=== PATIENT | female | born 1965 | race Caucasian/White ===

== ENCOUNTER 2016-12-20 09:59 | Emergency (ER) | payer BC ==
[2016-12-20 10:21] VITALS: BP 162/90
--- NOTE | 2016-12-20 10:50 | EDM.PDOC ---
ED HPI Trauma - General Chief Complaint: Upper Extremity Injury/Pain Stated Complaint: RT ARM PAIN Time Seen by Provider: 12/20/16 10:25 Source: Reports: Patient, RN notes reviewed - History of Present Illness INITIAL COMMENTS - FREE TEXT/NARRATIVE: 51-year-old female comes in with right upper arm and right shoulder pain. This started about 5 days ago and now getting much worse over the past 24-48 hours. She does not recall any fall or injury. She was seen at [facility] yesterday , had x-rays which did show a calcification off of the proximal humerus compatible with possible old injury. She was told to take ibuprofen, followup with a provider and get an MRI. However arrangements for MRI were not obtained. The pain has worsened through the night. She states she was not able to get dressed this morning without assistance. She did take 800 mg ibuprofen a few hours ago and now the pain is less severe but still very uncomfortable with any type of attempted motion. The pain does not radiate. No upper neck or back discomfort. No peripheral paresthesias. Allergies/ADRs: Allergies Sulfa (Sulfonamide Antibiotics) Allergy (Verified 12/20/16 10:12) Vomiting Home Medications: Ambulatory Orders Hydroclorathiazide 12.5 mg PO DAILY 12/20/16 [Confirmed 12/20/16] Levothyroxine Sodium [Synthroid] 112 mcg PO DAILY 12/20/16 [Confirmed 12/20/16] Metoprolol Tartrate 75 mg PO BID 12/20/16 [Confirmed 12/20/16] Past Medical History Cardiovascular History: Reports: Hypertension Respiratory History: Reports: Bronchitis, recurrent Endocrine/Metabolic History: Reports: Hypothyroidism Social & Family History - Tobacco Use Smoking Status *Q: Former Smoker Used Tobacco, but Quit: Yes Month Tobacco Last Used: 1 yr - Caffeine Use Caffeine Use: Reports: Coffee - Recreational Drug Use Recreational Drug Use: No Review of Systems - Review of Systems Review Of Systems: See Below Constitutional: Denies: chills, fever Mouth/Throat: Reports: no symptoms Respiratory: Denies: Shortness of Breath Cardiovascular: Denies: chest pain GI/Abdominal: Denies: Abdominal pain, Nausea, Vomiting Musculoskeletal: Reports: shoulder pain (Right shoulder). Denies: neck pain, back pain Skin: Reports: no symptoms Neurological: Denies: Numbness, Tingling Trauma Exam - Physical Exam Exam: See Below General Appearance: Reports: alert, moderate distress Head: Reports: atraumatic Eyes: bilateral eye: PERRL Neck: Reports: non-tender, full range of motion Respiratory Exam: Reports: no respiratory distress, lungs clear Cardiovascular: Reports: regular rate, rhythm Extremities: Reports: pain with movement, tenderness (There is soft tissue tenderness of the lateral aspect of the right shoulder and upper warm, no visible swelling, no visible deformity, no warmth or erythema), other (Elbow forearm are nontender and without swelling) Neurologic: Reports: no motor/sensory deficits Skin: Reports: Normal color, Warm/dry Course - Vital Signs Last Recorded V/S: Last Vital Signs Temp 98.6 F 12/20/16 10:19 Pulse 72 12/20/16 10:19 Resp 20 12/20/16 10:19 BP 162/90 H 12/20/16 10:19 Pulse Ox 97 12/20/16 10:19 - Orders/Labs/Meds Orders: Active Orders 24 hr Category Date Time Status Durable Medical Equipment for Discharge [DME for Oth 12/20/16 10:44 Ordered Discharge] [COMM] Stat - Re-Assessments/Exams Free Text/Narrative Re-Assessment/Exam: 12/20/16 11:08 A family member shows me a photo of her shoulder x-ray from yesterday. There is a fairly large calcification density off of the proximal humerus compatible with prior avulsion injury. This does not look like something acute. Shoulder joint and upper arm otherwise looks radiographically normal. I wouldn't treat her with an arm sling, have her continue Advil or ibuprofen 3 times daily, alternate ice and heat as needed, Tylenol or hydrocodone in addition to the ibuprofen as needed for severe pain. I have ordered an MRI. Radiology will contact her Thursday morning to get that scheduled. I've advised to followup with Dr. Edwards Orthopedist [facility] once the MRI has been done. Departure - Departure Time of Disposition: 10:48 Disposition: Home, Self-Care 01 Condition: fair Clinical Impression: Shoulder pain, acute Qualifiers: Laterality: right Qualified Code(s): M25.511 - Pain in right shoulder Instructions: Shoulder Pain Referrals: Puja Novak NP [Primary Care Provider] - Forms: ED Department Discharge Additional Instructions: Arm sling for the next few days, after 2 days start working with some range of motion exercises as previously demonstrated at the clinic at least 3 times daily so you do not get a stiff frozen shoulder. An order for MRI of the shoulder has been provided, radiology will call you Thursday morning to set you up with a time. Followup with Dr. Edwards, Orthopedist at [facility] after you have had your MRI for results, further treatment as needed. In the meantime continue Advil or ibuprofen. I recommend taking 600 mg 3 times daily with food. You may take Tylenol in between doses for extra pain relief or hydrocodone if needed for severe pain. Do not take Tylenol and hydrocodone at the same time. Do not drive or work when taking hydrocodone. - My Orders Last 24 Hours: My Active Orders 12/20/16 10:44 Durable Medical Equipment for Discharge [DME for Discharge] [COMM] Stat - Assessment/Plan Last 24 Hours: My Active Orders 12/20/16 10:44 Durable Medical Equipment for Discharge [DME for Discharge] [COMM] Stat
== END 2016-12-20 11:04 | disposition home or self-care (01) ==
LOC: JD.ED 09:59
DX: M25.511 Pain in right shoulder (principal); I10 Essential (primary) hypertension; E03.9 Hypothyroidism, unspecified; Z88.2 Allergy status to sulfonamides; Z79.899 Other long term (current) drug therapy; Z87.891 Personal history of nicotine dependence
CPT/HCPCS: 99283

== ENCOUNTER 2017-12-13 11:53 | Emergency (ER) | payer BC, OTHER ==
--- NOTE | 2017-12-13 12:30 | EDM.PDOC ---
ED HPI GENERAL MEDICAL PROBLEM - General Chief Complaint: Genitourinary Problem Stated Complaint: POSS. UTI Time Seen by Provider: 12/13/17 12:20 Source of Information: Reports: Patient History Limitations: Reports: No Limitations - History of Present Illness INITIAL COMMENTS - FREE TEXT/NARRATIVE: 52-year-old female presents for evaluation and treatment of hematuria. Patient reports that her symptoms started suddenly about 2 hours ago. Current symptoms include dysuria, hematuria, urinary frequency and urinary urgency. She reports that she is having some low back pain. She also reports nausea. No fevers, chills or vomiting. She is also complaining of some suprapubic pelvic pain. Patient reports she's had a 2 urinary tract infections in the past. She also has had kidney stones in the past. Onset: Today, Sudden Location: Reports: Abdomen (suprapubic) Treatments HEAD OF HUMAN RESOURCES: Reports: Other (see below) Other Treatments HEAD OF HUMAN RESOURCES: none Pelvic Pain Score (Numeric/FACES): 4 - Related Data Allergies Allergy/AdvReac Type Severity Reaction Status Date / Time Sulfa (Sulfonamide Allergy Vomiting Verified 12/20/16 10:12 Antibiotics) Home Meds: Home Meds Hydroclorathiazide 12.5 mg PO DAILY 12/20/16 [History] Levothyroxine Sodium [Synthroid] 112 mcg PO DAILY 12/20/16 [History] Metoprolol Tartrate 75 mg PO BID 12/20/16 [History] Fluconazole [Diflucan] 150 mg PO ASDIRECTED #2 tablet 12/13/17 [Rx] Nitrofurantoin Monohyd/M-Cryst [Macrobid 100 mg Capsule] 100 mg PO BID #20 capsule 12/13/17 [Rx] Past Medical History Cardiovascular History: Reports: Hypertension Respiratory History: Reports: Bronchitis, Recurrent Genitourinary History: Reports: Renal Calculus, UTI, Recurrent Endocrine/Metabolic History: Reports: Hypothyroidism Social & Family History - Tobacco Use Smoking Status *Q: Current Every Day Smoker Years of Tobacco use: 30 Packs/Tins Daily: 0.7 Used Tobacco, but Quit: Yes Month/Year Tobacco Last Used: 1 yr - Caffeine Use Caffeine Use: Reports: Coffee, Soda - Recreational Drug Use Recreational Drug Use: No ED ROS GENERAL - Review of Systems Review Of Systems: See Below Constitutional: Denies: Fever, Chills GI/Abdominal: Reports: Abdominal Pain (lower abdomen/suprapubic), Nausea. Denies: Vomiting : Reports: Dysuria, Frequency, Hematuria, Pain. Denies: Flank Pain Musculoskeletal: Reports: Back Pain (lower back) ED EXAM, RENAL/ - Physical Exam Exam: See Below Exam Limited By: No Limitations General Appearance: Alert, WD/WN, No Apparent Distress, Anxious, Obese Ears: Normal External Exam Nose: Normal Inspection Throat/Mouth: Normal Inspection, Normal Voice, No Airway Compromise Respiratory/Chest: No Respiratory Distress, Lungs Clear, Normal Breath Sounds Cardiovascular: Normal Peripheral Pulses, Regular Rate, Rhythm, No Murmur Back Exam: Normal Inspection. No: CVA Tenderness (L), CVA Tenderness (R) Neurological: Alert, Oriented, Normal Cognition Psychiatric: Normal Affect, Normal Mood Skin Exam: Warm, Dry, Normal Color Course - Vital Signs Last Recorded V/S: Last Vital Signs Temp 36.8 C 12/13/17 12:08 Pulse 104 H 12/13/17 12:08 Resp 18 12/13/17 13:46 BP 135/71 12/13/17 13:46 Pulse Ox 96 12/13/17 13:46 - Orders/Labs/Meds Orders: Active Orders 24 hr Category Date Time Status CULTURE URINE [RM] Stat Lab 12/13/17 11:59 Ordered Labs: Laboratory Tests 12/13/17 Range/Units 11:59 Urine Color Natalia H (Yellow) Urine Appearance Slt cloudy H (Clear) Urine pH 5.5 (5.0-8.0) Ur Specific Mccarr > or = 1.030 (1.005-1.030) Urine Protein 3+ H (Negative) Urine Glucose (UA) Negative (Negative) Urine Ketones Trace H (Negative) Urine Occult Blood 3+ H (Negative) Urine Nitrite Negative (Negative) Urine Bilirubin 1+ H (Negative) Urine Urobilinogen 0.2 (0.2-1.0) Ur Leukocyte Esterase 3+ H (Negative) Urine RBC Too numerous to cnt H (0-5) /hpf Urine WBC Too numerous to cnt H (0-5) /hpf Ur Epithelial Cells 0-5 (0-5) /hpf Urine Bacteria Few (FEW) /hpf Urine Mucus Not seen (FEW) /hpf - Re-Assessments/Exams Free Text/Narrative Re-Assessment/Exam: 04/29/18 13:31 Reviewed UA with the patient. Urine sent for culture. Symptoms and UA consistent with UTI. Will treat with antibiotics. Follow- up if not better. diflucan written for frequent yeast infections with antibiotics. Discharge instructions as documented. Departure - Departure Time of Disposition: 13:37 Disposition: Home, Self-Care 01 Condition: Good Clinical Impression: UTI, Urinary tract infectious disease - Discharge Information Prescriptions: Fluconazole [Diflucan] 150 mg PO ASDIRECTED #2 tablet Nitrofurantoin Monohyd/M-Cryst [Macrobid 100 mg Capsule] 100 mg PO BID #20 capsule Instructions: Urinary Tract Infection, Adult, [id number] Referrals: Puja Novak NP [Primary Care Provider] - Forms: ED Department Discharge Additional Instructions: make Sure you are drinking plenty of fluids. Recommend [id number] Pyridium or Azo. May take this 3 times a day for 3 days while the antibiotics kick in. This will help with the dysuria. [id number] Tylenol or Motrin seen for additional pain relief. Macrobid 1 Twice a day for 10 days. Follow up with your primary care provider for symptoms do not improve within 10 days. You may take the Diflucan if you develop yeast infection. Take 1 pill at the onset of symptoms and take a second pill 72 hours later. Please return to the ER if your symptoms change or worsen. - My Orders Last 24 Hours: My Active Orders 12/13/17 11:59 CULTURE URINE [RM] Stat - Assessment/Plan Last 24 Hours: My Active Orders 12/13/17 11:59 CULTURE URINE [RM] Stat
[2017-12-13 13:52] VITALS: BP 135/71
== END 2017-12-13 13:50 | disposition home or self-care (01) ==
LOC: JD.ED 11:53
DX: N39.0 Urinary tract infection, site not specified (principal); I10 Essential (primary) hypertension; E03.9 Hypothyroidism, unspecified; F17.210 Nicotine dependence, cigarettes, uncomplicated; Z87.440 Personal history of urinary (tract) infections; Z87.442 Personal history of urinary calculi; Z88.2 Allergy status to sulfonamides; Z79.899 Other long term (current) drug therapy
CPT/HCPCS: 81001; 87086; 99283

== ENCOUNTER 2019-05-02 03:19 | Inpatient (IN) | payer OTHER ==
[2019-05-02] MEDS ORDERED: Albuterol/Ipratropium 3.0-0.5 MG/3 ML Neb Soln NEB ONE ×3 (03:38→06:12)
--- NOTE | 2019-05-02 03:40 | EDM.PDOC ---
ED HPI GENERAL MEDICAL PROBLEM - General Chief Complaint: Cardiovascular Problem Stated Complaint: CHEST PAIN SHORT OF BREATH Time Seen by Provider: 05/02/19 03:32 - History of Present Illness INITIAL COMMENTS - FREE TEXT/NARRATIVE: 53-year-old female presents emergency room with shortness of breath. She has some chest discomfort and sharp pain with deep breathing. And with coughing. She is coughing up some off-colored thick sputum. And it takes some effort to get this to come up. Patient has a history of childhood asthma nothing as an adult. The patient is a smoker she's quit several times in the past but manages to recent dark. She has no history of coronary artery disease. This last week the patient had some fevers in the 101 range she was seen in the clinic twice because she had some bladder fullness urinalysis were unrevealing they did some cultures never grew out anything. Chest Pain Score (Numeric/FACES): 3 - Related Data Allergies Allergy/AdvReac Type Severity Reaction Status Date / Time Sulfa (Sulfonamide Allergy Vomiting Verified 05/02/19 04:19 Antibiotics) Home Meds: Home Meds Hydroclorathiazide 6.25 mg PO DAILY 12/20/16 [History] Levothyroxine Sodium [Synthroid] 112 mcg PO DAILY 12/20/16 [History] Metoprolol Tartrate 75 mg PO BID 12/20/16 [History] Multivitamin [Multi-Day Vitamins] 1 each PO DAILY 06/07/18 [History] Past Medical History Cardiovascular History: Reports: Hypertension Respiratory History: Reports: Bronchitis, Recurrent Genitourinary History: Reports: Renal Calculus Psychiatric History: Reports: Panic Attack (x 1) Endocrine/Metabolic History: Reports: Hypothyroidism, Obesity/BMI 30+ - Past Surgical History Endocrine Surgical History: Reports: Thyroidectomy Social & Family History - Family History Family Medical History: Noncontributory - Caffeine Use Caffeine Use: Reports: Coffee - Living Situation & Occupation Living situation: Reports: , with Spouse 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 Denies: Chills HEENT: Reports: No Symptoms Respiratory: Reports: Shortness of Breath, Pleuritic Chest Pain, Cough, Sputum Cardiovascular: Reports: Chest Pain (Sharp pleuritic-type chest pain). Denies: Palpitations Endocrine: Reports: No Symptoms GI/Abdominal: Reports: No Symptoms : Reports: No Symptoms Neurological: Reports: No Symptoms ED EXAM, GENERAL - Physical Exam Exam: See Below Exam Limited By: No Limitations General Appearance: Alert, Moderate Distress (Shortness of breath). No: Anxious Ears: Normal External Exam, Normal Canal, Hearing Grossly Normal, Normal TMs Nose: Normal Inspection, Normal Mucosa, No Blood Throat/Mouth: Normal Inspection, Normal Lips, Normal Teeth, Normal Gums, Normal Oropharynx, Normal Voice, No Airway Compromise Head: Atraumatic, Normocephalic Neck: Normal Inspection, Supple, Non-Tender, Full Range of Motion, Lymphadenopathy (L), Lymphadenopathy (R) Respiratory/Chest: No Respiratory Distress, Lungs Clear, Normal Breath Sounds Cardiovascular: Regular Rate, Rhythm, No Edema, No Murmur GI/Abdominal: Normal Bowel Sounds, Soft, Non-Tender Extremities: Normal Inspection, Non-Tender, No Pedal Edema. No: Pedal Edema Neurological: Alert, Oriented, Normal Cognition Course - Vital Signs Last Recorded V/S: Last Vital Signs Temp 37.4 C 05/02/19 03:31 Pulse 120 H 05/02/19 03:31 Resp 27 H 05/02/19 03:31 BP 167/79 H 05/02/19 03:31 Pulse Ox 95 05/02/19 06:19 - Orders/Labs/Meds Orders: Active Orders 24 hr Category Date Time Status EKG Documentation Completion [RC] URGENT Care 05/02/19 03:40 Active Oxygen Therapy, ED [RC] ASDIRECTED Care 05/02/19 04:25 Active RT Aerosol Therapy [RC] ASDIRECTED Care 05/02/19 03:38 Active RT Aerosol Therapy [RC] ASDIRECTED Care 05/02/19 04:59 Active RT Aerosol Therapy [RC] ASDIRECTED Care 05/02/19 06:13 Active Ang Chest [CT] Stat Exams 05/02/19 04:24 Taken Chest 1V Frontal [CR] Stat Exams 05/02/19 03:39 Taken CULTURE BLOOD [BC] Stat Lab 05/02/19 03:55 Received CULTURE BLOOD [BC] Stat Lab 05/02/19 04:05 Received Levofloxacin/Dextrose 5%-Water [Levaquin in D5W 750 MG/ Med 05/02/19 07:04 Ordered 150 ML] 750 mg Premix Bag 1 bag IV ONETIME Sodium Chloride 0.9% [Normal Saline] 1,000 ml Med 05/02/19 03:45 Active IV ASDIRECTED Sodium Chloride 0.9% [Normal Saline] 100 ml Med 05/02/19 04:45 Active IV ASDIRECTED Blood Culture x2 Reflex Set [OM.PC] Stat Oth 05/02/19 03:40 Ordered Medication Orders Sodium Chloride (Normal Saline) 1,000 mls @ 125 mls/hr IV ASDIRECTED KARMEN Last Admin: 05/02/19 04:09 Dose: 125 mls/hr Sodium Chloride (Normal Saline) 100 mls @ 5 mls/sec IV ASDIRECTED KARMEN Last Admin: 05/02/19 04:43 Dose: 5 mls/sec Levofloxacin/Dextrose 750 mg/ (Premix) 150 mls @ 100 mls/hr IV ONETIME ONE Stop: 05/02/19 08:33 Labs: Laboratory Tests 05/02/19 05/02/19 05/02/19 Range/Units 03:35 03:35 03:35 WBC 11.50 H (3.98-10.04) K/mm3 RBC 5.58 H (3.98-5.22) M/mm3 Hgb 15.7 (11.2-15.7) gm/L Hct 47.2 H (34.1-44.9) % MCV 84.6 (79.4-94.8) fl MCH 28.1 (25.6-32.2) pg MCHC 33.3 (32.2-35.5) g/dl RDW Std Deviation 43.2 (36.4-46.3) fL Plt Count 170 L (182-369) K/mm3 MPV 12.0 (9.4-12.3) fl Neutrophils % (Manual) 63 H (40-60) % Band Neutrophils % 14 H (0-10) % Lymphocytes % (Manual) 14 L (20-40) % Atypical Lymphs % 0 % Monocytes % (Manual) 5 (2-10) % Eosinophils % (Manual) 4 (0.7-5.8) % Basophils % (Manual) 0 L (0.1-1.2) Toxic Granulation 2+ moderate Platelet Estimate Decreased Plt Morphology Comment Normal RBC Morph Comment Normal PT 10.5 (9.7-12.0) SECONDS INR 0.96 APTT 29 (22-31) SECONDS Sodium 139 (136-145) mEq/L Potassium 3.7 (3.5-5.1) mEq/L Chloride 104 (98-107) mEq/L Carbon Dioxide 24 (21-32) mEq/L Anion Gap 14.7 (5-15) BUN 19 H (7-18) mg/dL Creatinine 0.9 (0.55-1.02) mg/dL Est Cr Clr Drug Dosing 102.34 mL/min Estimated GFR (MDRD) > 60 (>60) mL/min BUN/Creatinine Ratio 21.1 H (14-18) Glucose 145 H (74-106) mg/dL Calcium 9.4 (8.5-10.1) mg/dL Magnesium 2.0 (1.8-2.4) mg/dl Total Bilirubin 0.9 (0.2-1.0) mg/dL AST 14 L (15-37) U/L ALT 44 (14-59) U/L Alkaline Phosphatase 139 H (46-116) U/L Troponin I < 0.017 (0.00-0.056) ng/mL Total Protein 8.1 (6.4-8.2) g/dl Albumin 3.9 (3.4-5.0) g/dl Globulin 4.2 gm/dL Albumin/Globulin Ratio 0.9 L (1-2) Mycoplasma pneumon IgM Negative (NEGATIVE) Meds: Medications Generic Name Dose Route Start Last Admin Trade Name Freq PRN Reason Stop Dose Admin Sodium Chloride 1,000 mls @ 125 mls/hr 05/02/19 03:45 05/02/19 04:09 Normal Saline IV 125 mls/hr ASDIRECTED KARMEN Administration Sodium Chloride 100 mls @ 5 mls/sec 05/02/19 04:45 05/02/19 04:43 Normal Saline IV 5 mls/sec ASDIRECTED KARMEN Administration Levofloxacin/Dextrose 750 mg/ 150 mls @ 100 mls/hr 05/02/19 07:04 Premix IV 05/02/19 08:33 ONETIME ONE Discontinued Medications Generic Name Dose Route Start Last Admin Trade Name Freq PRN Reason Stop Dose Admin Acetaminophen 650 mg 05/02/19 05:23 05/02/19 05:27 Tylenol PO 05/02/19 05:24 650 mg NOW ONE Administration Albuterol/Ipratropium 3 ml 05/02/19 03:38 05/02/19 03:44 Duoneb 3.0-0.5 Mg/3 Ml NEB 05/02/19 03:39 3 ml ONETIME ONE Administration Albuterol/Ipratropium 3 ml 05/02/19 04:59 05/02/19 05:07 Duoneb 3.0-0.5 Mg/3 Ml NEB 05/02/19 05:00 3 ml ONETIME ONE Administration Albuterol/Ipratropium 3 ml 05/02/19 06:12 05/02/19 06:18 Duoneb 3.0-0.5 Mg/3 Ml NEB 05/02/19 06:13 3 ml ONETIME ONE Administration Iopamidol 100 ml 05/02/19 04:42 05/02/19 04:43 Isovue-370 (76%) IVPUSH 05/02/19 04:43 100 ml ONETIME ONE Administration Methylprednisolone Sodium Succinate 125 mg 05/02/19 04:25 05/02/19 04:47 Solu-Medrol IVPUSH 05/02/19 04:26 125 mg ONETIME ONE Administration - Re-Assessments/Exams Free Text/Narrative Re-Assessment/Exam: 05/02/19 07:31 A she presented to the emergency room with significant shortness of breath and labored respirations. She was moving very little air. She's got no significant history of asthma except as a child. Patient has been running some fevers recently and has been coughing up thick off-color sputum. She was given her initial breathing treatment and 125 mg of IV Solu-Medrol and felt much better after the deep breathing treatment however her O2 saturations were still a little on the low side 88-89%. She was continued on supplemental oxygen. She had several more breathing treatments each one did continue to help after her third breathing treatment she was moving air better to the point he can hear inspiratory crackles and a few expiratory wheezes. She had a plate chest x-ray that really was nonrevealing because of her continued tachycardia I did get a CTA which showed no central pulmonary embolism did show some possible mild pulmonary edema it incidentally showed some cholelithiasis with a possibly mildly distended gallbladder. She had 4 for it to 7 mm pulmonary nodules. Had a long talk with patient about the importance of quitting smoking. Lungs showed some bilateral groundglass opacities with some associated interstitial thickening but no obvious infiltrate. The patient was started on Levaquin 750 mg. Case was discussed with Dr. Parkinson, our hospitalist who will assume care Departure - Departure Time of Disposition: 07:21 Disposition: Refer to Observation Clinical Impression: COPD exacerbation Referrals: Puja Novak, [employer] [Primary Care Provider] - Forms: ED Department Discharge - My Orders Last 24 Hours: My Active Orders 05/02/19 03:38 RT Aerosol Therapy [RC] ASDIRECTED 05/02/19 03:39 Chest 1V Frontal [CR] Stat 05/02/19 03:40 EKG Documentation Completion [RC] URGENT Blood Culture x2 Reflex Set [OM.PC] Stat 05/02/19 03:45 Sodium Chloride 0.9% [Normal Saline] 1,000 ml IV ASDIRECTED 05/02/19 03:55 CULTURE BLOOD [BC] Stat 05/02/19 04:05 CULTURE BLOOD [BC] Stat 05/02/19 04:24 Ang Chest [CT] Stat 05/02/19 04:25 Oxygen Therapy, ED [RC] ASDIRECTED 05/02/19 04:45 Sodium Chloride 0.9% [Normal Saline] 100 ml IV ASDIRECTED 05/02/19 04:59 RT Aerosol Therapy [RC] ASDIRECTED 05/02/19 06:13 RT Aerosol Therapy [RC] ASDIRECTED 05/02/19 07:04 Levofloxacin/Dextrose 5%-Water [Levaquin in D5W 750 MG/150 ML] 750 mg Premix Bag 1 bag IV ONETIME - Assessment/Plan Last 24 Hours: My Active Orders 05/02/19 03:38 RT Aerosol Therapy [RC] ASDIRECTED 05/02/19 03:39 Chest 1V Frontal [CR] Stat 05/02/19 03:40 EKG Documentation Completion [RC] URGENT Blood Culture x2 Reflex Set [OM.PC] Stat 05/02/19 03:45 Sodium Chloride 0.9% [Normal Saline] 1,000 ml IV ASDIRECTED 05/02/19 03:55 CULTURE BLOOD [BC] Stat 05/02/19 04:05 CULTURE BLOOD [BC] Stat 05/02/19 04:24 Ang Chest [CT] Stat 05/02/19 04:25 Oxygen Therapy, ED [RC] ASDIRECTED 05/02/19 04:45 Sodium Chloride 0.9% [Normal Saline] 100 ml IV ASDIRECTED 05/02/19 04:59 RT Aerosol Therapy [RC] ASDIRECTED 05/02/19 06:13 RT Aerosol Therapy [RC] ASDIRECTED 05/02/19 07:04 Levofloxacin/Dextrose 5%-Water [Levaquin in D5W 750 MG/150 ML] 750 mg Premix Bag 1 bag IV ONETIME
[2019-05-02] MEDS: Sodium Chloride 0.9% 1,000 ML IV SCH ×3 (04:09→20:25)
[2019-05-02] MEDS ORDERED: methylPREDNISolone Sodium Succinate 125 MG/2 ML SDV IVPUSH ONE (04:25)
[2019-05-02] MEDS ORDERED: Iopamidol 755 Mg/ML 100 ML Bottle IVPUSH ONE (04:42)
[2019-05-02] MEDS ORDERED: Sodium Chloride 0.9% 100 ML IV SCH (04:45)
[2019-05-02] MEDS ORDERED: Acetaminophen 325 MG Tab PO ONE (05:23)
[2019-05-02] MEDS ORDERED: Levofloxacin/Dextrose 5%-Water 750 MG in Premix Bag 1 BAG IV ONE (07:04)
--- NOTE | 2019-05-02 08:31 | PCM.HP.2 ---
<Charla Bell - Last Filed: 05/03/19 12:33> H&P History of Present Illness - General Date of Service: 05/02/19 Admit Problem/Dx: Admission Diagnosis/Problem Admission Diagnosis/Problem Hypoxia Source of Information: Patient History Limitations: Reports: No Limitations - History of Present Illness Initial Comments - Free Text/Narative: Patient is a 53 year old female with a 31 year pack history of cigarette smoking and history of hypertension and childhood asthma who presents today for evaluation of pleuritic chest pain with productive cough and fever. On 04/27/19 the patient initially had non productive cough, dysuria and hematuria, which she presented to the walk in clinic for evaluation and was prescribed Nitrofurantoin. At the time, the patient had a negative urine culture. On , the patient began having shortness of breath and chest tightness, as well as a fever of 100.7, in addition to wheezing. She continued her antibiotics. On 04/29/19 she had a "low grade fever" and lower back pain, the patient returned to the walk in clinic for more labs and another urine culture, which continued to be negative. She was offered a CT scan but refused at this time. It appears at this time that her shortness of breath and wheezing were improving. On , two days ago, the patient noted general improvement of her symptoms, although she did note lower abdominal pressure and discomfort. She did not have a fever. On 05/01/19, one day ago, the patient awoke with a headache, which she managed with Tylenol, and then later in the afternoon developed difficulty breathing similar to what she felt on 04/28/19, but seemed to be worsening. She attempted taking Mucinex but did not have relief. She also reported some nausea and a productive cough, which she describes as "sticky and thick." She did vomit this morning at approximately 1:30 am and then vomiting again in the ER parking lot. No hematemesis noted. Today she notes a localized pain in her right anterior mid axillary chest with associated tightness, shortness of breath and cough. She has had decreased appetite. She denies constipation or diarrhea, no hematochezia or melena or abdominal pain. She has never experienced anything like this in the past, although she was recently in [place] for work where she was treated for an ear infection. While in the ED she received 3 nebulizer treatments of albuterol/ipratropium, methylprednisolone 125, underwent an CTA and Chest Xray and was stared on Levofloxacin. The CTA demonstrated possible cholelithiasis with mildly distended gallbladder, as well as 4 7 mm pulmonary nodules. Chest Xray showed no obvious infiltrates. CBC demonstrated elevated WBC at 11.5, low platelets of 170,000, elevated alkaline phosphatase at 139. Negative mycoplasma testing. EKG done in ED showed sinus tachycardia. Duration of Symptoms: Reports: Day(s): Location: Reports: Chest Quality: Reports: Sharp Improves with: Reports: Other (Sitting upright) Context: Denies: Sick Contact Associated Symptoms: Reports: cough w sputum, Fever/Chills, Shortness of Breath Chest Pain Score (Numeric/FACES): 3 Headache Pain Score (Numeric/FACES): 5 - Related Data Allergies/Adverse Reactions: Allergies Allergy/AdvReac Type Severity Reaction Status Date / Time Sulfa (Sulfonamide AdvReac Vomiting Verified 05/02/19 07:54 Antibiotics) Home Medications: Home Meds Levothyroxine Sodium [Synthroid] 112 mcg PO DAILY 12/20/16 [History] Metoprolol Tartrate 75 mg PO BID 12/20/16 [History] Multivitamin [Multi-Day Vitamins] 1 each PO DAILY 06/07/18 [History] hydroCHLOROthiazide [Hydrochlorothiazide] 12.5 - 25 mg PO DAILY 05/02/19 [ History] Past Medical History Cardiovascular History: Reports: Hypertension Respiratory History: Reports: Bronchitis, Recurrent Genitourinary History: Reports: Renal Calculus 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: Musculoskeletal History: Reports: Fracture, Other (See Below) Other Musculoskeletal History: left tibia Psychiatric History: Reports: Panic Attack (x 1) Endocrine/Metabolic History: Reports: Hypothyroidism, Obesity/BMI 30+ - Past Surgical History Endocrine Surgical History: Reports: Thyroidectomy Social & Family History - Family History Family Medical History: Noncontributory - Tobacco Use Smoking Status *Q: Current Every Day Smoker Years of Tobacco use: 43 Packs/Tins Daily: 0.7 Used Tobacco, but Quit: No - Tobacco Core Measures Tobacco Use/Smoking Within Last 30 Days: Yes - Caffeine Use Caffeine Use: Reports: Coffee - Alcohol Use Alcohol Use History: Yes Alcohol Use Frequency: Socially (1 drink per month) - Recreational Drug Use Recreational Drug Use: No - Living Situation & Occupation Living situation: Reports: , with Spouse 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 Denies: Dysphasia, Ear Pain, Hearing Changes, Rhinitis, Sore Throat, Visual Changes Pulmonary: Reports: Shortness of Breath, Wheezing, Pleuritic Chest Pain, Cough, Sputum Cardiovascular: Reports: Chest Pain. Denies: Palpitations, Edema Gastrointestinal: Reports: Decreased Appetite, Vomiting. Denies: Abdominal Pain , Constipation, Diarrhea, Hematemesis, Hematochezia Genitourinary: Reports: Dysuria, Hematuria. Denies: Frequency Musculoskeletal: Reports: Joint Pain (With fever) Skin: Reports: No Symptoms Psychiatric: Reports: No Symptoms. Denies: Mood Lability, Anxiety Neurological: Reports: Headache. Denies: Numbness, Paresthesia, Syncope Hematologic/Lymphatic: Reports: No Symptoms Immunologic: Reports: No Symptoms Exam - Exam Exam: See Below - Vital Signs Vital Signs: Last Vital Signs Temp 99.3 F 05/02/19 03:31 Pulse 120 H 05/02/19 07:53 Resp 15 05/02/19 07:53 BP 141/69 H 05/02/19 07:53 Pulse Ox 96 05/02/19 07:53 Weight: 90.718 kg - Exam Quality Assessment: Supplemental Oxygen General: Alert, Oriented HEENT: Conjunctiva Clear, Hearing Intact, Nares Patent Neck: Supple, Trachea Midline Lungs: Crackles (Inspiratory ), Wheezing (Expiratory wheezing) Cardiovascular: Regular Rhythm, Tachycardia GI/Abdominal Exam: Normal Bowel Sounds, Soft, No Organomegaly, Tender (Mild epigastric tenderness). No: Hepatomegaly, Splenomegaly Back Exam: Normal Inspection Extremities: Normal Inspection, Non-Tender, No Pedal Edema, Normal Capillary Refill Skin: Warm, Dry, Intact Neuro Extensive - Mental Status: Alert, Oriented x3, Normal Mood/Affect, Normal Cognition Psychiatric: Alert, Normal Affect, Normal Mood - Patient Data Lab Results Last 24 hrs: Laboratory Results - last 24 hr 05/02/19 05/02/19 05/02/19 Range/Units 03:35 03:35 03:35 WBC 11.50 H (3.98-10.04) K/mm3 RBC 5.58 H (3.98-5.22) M/mm3 Hgb 15.7 (11.2-15.7) gm/L Hct 47.2 H (34.1-44.9) % MCV 84.6 (79.4-94.8) fl MCH 28.1 (25.6-32.2) pg MCHC 33.3 (32.2-35.5) g/dl RDW Std Deviation 43.2 (36.4-46.3) fL Plt Count 170 L (182-369) K/mm3 MPV 12.0 (9.4-12.3) fl Neutrophils % (Manual) 63 H (40-60) % Band Neutrophils % 14 H (0-10) % Lymphocytes % (Manual) 14 L (20-40) % Atypical Lymphs % 0 % Monocytes % (Manual) 5 (2-10) % Eosinophils % (Manual) 4 (0.7-5.8) % Basophils % (Manual) 0 L (0.1-1.2) Toxic Granulation 2+ moderate Platelet Estimate Decreased Plt Morphology Comment Normal RBC Morph Comment Normal PT 10.5 (9.7-12.0) SECONDS INR 0.96 APTT 29 (22-31) SECONDS Sodium 139 (136-145) mEq/L Potassium 3.7 (3.5-5.1) mEq/L Chloride 104 (98-107) mEq/L Carbon Dioxide 24 (21-32) mEq/L Anion Gap 14.7 (5-15) BUN 19 H (7-18) mg/dL Creatinine 0.9 (0.55-1.02) mg/dL Est Cr Clr Drug Dosing 102.34 mL/min Estimated GFR (MDRD) > 60 (>60) mL/min BUN/Creatinine Ratio 21.1 H (14-18) Glucose 145 H (74-106) mg/dL Calcium 9.4 (8.5-10.1) mg/dL Magnesium 2.0 (1.8-2.4) mg/dl Total Bilirubin 0.9 (0.2-1.0) mg/dL AST 14 L (15-37) U/L ALT 44 (14-59) U/L Alkaline Phosphatase 139 H (46-116) U/L Troponin I < 0.017 (0.00-0.056) ng/mL Total Protein 8.1 (6.4-8.2) g/dl Albumin 3.9 (3.4-5.0) g/dl Globulin 4.2 gm/dL Albumin/Globulin Ratio 0.9 L (1-2) Mycoplasma pneumon IgM Negative (NEGATIVE) Result Diagrams: 05/03/19 05:15 05/03/19 05:15 - Problem List (1) Reactive airway disease SNOMED Code(s): 796589299968 ICD Code: J45.909 - UNSPECIFIED ASTHMA, UNCOMPLICATED Status: Acute Current Visit: Yes Problem List Initiated/Reviewed/Updated: Yes Orders Last 24hrs: Active Orders 24 hr Category Date Time Status Patient Status [ADT] Stat ADT 05/02/19 07:27 Active Oxygen Therapy, ED [RC] ASDIRECTED Care 05/02/19 04:25 Active RT Aerosol Therapy [RC] ASDIRECTED Care 05/02/19 03:38 Active Ang Chest [CT] Stat Exams 05/02/19 04:24 Taken Chest 1V Frontal [CR] Stat Exams 05/02/19 03:39 Taken CULTURE BLOOD [BC] Stat Lab 05/02/19 03:55 Received CULTURE BLOOD [BC] Stat Lab 05/02/19 04:05 Received Levofloxacin/Dextrose 5%-Water [Levaquin in D5W 750 MG/ Med 05/02/19 07:04 Active 150 ML] 750 mg Premix Bag 1 bag IV ONETIME Sodium Chloride 0.9% [Normal Saline] 1,000 ml Med 05/02/19 03:45 Active IV ASDIRECTED Sodium Chloride 0.9% [Normal Saline] 100 ml Med 05/02/19 04:45 Active IV ASDIRECTED Blood Culture x2 Reflex Set [OM.PC] Stat Oth 05/02/19 03:40 Ordered Medication Orders Sodium Chloride (Normal Saline) 1,000 mls @ 125 mls/hr IV ASDIRECTED KARMEN Last Admin: 05/02/19 04:09 Dose: 125 mls/hr Sodium Chloride (Normal Saline) 100 mls @ 5 mls/sec IV ASDIRECTED KARMEN Last Admin: 05/02/19 04:43 Dose: 5 mls/sec Levofloxacin/Dextrose 750 mg/ (Premix) 150 mls @ 100 mls/hr IV ONETIME ONE Stop: 05/02/19 08:33 Last Admin: 05/02/19 07:24 Dose: 100 mls/hr Assessment/Plan Comment:: Assessment: * Reactive airway disease/probable COPD: following hospitalization, recommend the patient be evaluated for COPD due to 31 pack year history of smoking * Cholelithiasis: follow up with primary care provider, advise low fat diet * Pulmonary nodules: monitor and follow up with primary care provider Plan: * Encourage smoking cessation; provide nicotine patch during hospitalization * Albuterol/Ipratropium Q4 prn * Dextromethorphan/Guaifenesin for cough suppression * Obtain sputum culture to rule out infection due to elevated WBCs with a left shift. * Follow up BMP, CBC with Diff, CRP and Magnesium levels tomorrow am * Diet as tolerated * Consult with respiratory therapy * SCD for VTE prophylaxis - Mortality Measure Prognosis:: Poor <Sunita Parkinson - Last Filed: 05/03/19 19:30> H&P History of Present Illness - General Admit Problem/Dx: Admission Diagnosis/Problem Admission Diagnosis/Problem Hypoxia Exam - Vital Signs Vital Signs: Last Vital Signs Temp 36.6 C 05/03/19 12:35 Pulse 66 05/03/19 13:47 Resp 18 05/03/19 12:35 BP 111/65 05/03/19 12:35 Pulse Ox 96 05/03/19 17:43 - Patient Data Lab Results Last 24 hrs: Laboratory Results - last 24 hr 05/03/19 05/03/19 05/03/19 Range/Units 05:15 05:15 15:25 WBC 11.41 H (3.98-10.04) K/mm3 RBC 4.28 (3.98-5.22) M/mm3 Hgb 12.1 D (11.2-15.7) gm/dl Hct 37.4 (34.1-44.9) % MCV 87.4 (79.4-94.8) fl MCH 28.3 (25.6-32.2) pg MCHC 32.4 (32.2-35.5) g/dl RDW Std Deviation 45.8 (36.4-46.3) fL Plt Count 139 L (182-369) K/mm3 MPV 11.8 (9.4-12.3) fl Neut % (Auto) 70.5 (34.0-71.1) % Lymph % (Auto) 17.2 L (19.3-51.7) % [place] % (Auto) 9.3 (4.7-12.5) % Eos % (Auto) 2.5 (0.7-5.8) Baso % (Auto) 0.3 (0.1-1.2) % Neut # (Auto) 8.06 H (1.56-6.13) K/mm3 Lymph # (Auto) 1.96 (1.18-3.74) K/mm3 [place] # (Auto) 1.06 H (0.24-0.36) K/mm3 Eos # (Auto) 0.28 (0.04-0.36) K/mm3 Baso # (Auto) 0.03 (0.01-0.08) K/mm3 Sodium 141 (136-145) mEq/L Potassium 3.6 (3.5-5.1) mEq/L Chloride 108 H (98-107) mEq/L Carbon Dioxide 24 (21-32) mEq/L Anion Gap 12.6 (5-15) BUN 17 (7-18) mg/dL Creatinine 0.7 (0.55-1.02) mg/dL Est Cr Clr Drug Dosing 76.00 mL/min Estimated GFR (MDRD) > 60 (>60) mL/min BUN/Creatinine Ratio 24.3 H (14-18) Glucose 101 (74-106) mg/dL Calcium 8.4 L (8.5-10.1) mg/dL Magnesium 2.0 (1.8-2.4) mg/dl C-Reactive Protein 3.7 H* (<1.0) mg/dL Urine Color Light yellow (Yellow) Urine Appearance Clear (Clear) Urine pH 5.5 (5.0-8.0) Ur Specific [place] 1.015 (1.005-1.030) Urine Protein Negative (Negative) Urine Glucose (UA) Negative (Negative) Urine Ketones Negative (Negative) Urine Occult Blood Negative (Negative) Urine Nitrite Negative (Negative) Urine Bilirubin Negative (Negative) Urine Urobilinogen 0.2 (0.2-1.0) Ur Leukocyte Esterase Negative (Negative) Urine RBC 0-5 (0-5) /hpf Urine WBC 0-5 (0-5) /hpf Ur Squamous Epith Cells 0-5 (0-5) /hpf Urine Bacteria Occasional (FEW) /hpf Urine Mucus Not seen (FEW) /hpf Result Diagrams: 05/03/19 05:15 05/03/19 05:15 [place] Results Last 24 hrs: Microbiology 05/02/19 20:00 Gram Stain - Final Sputum - Expectorated Sputum Culture - Preliminary 05/02/19 04:05 Aerobic Blood Culture - Preliminary Blood - Venous - Lab Draw NO GROWTH AFTER 1 DAY Anaerobic Blood Culture - Preliminary NO GROWTH AFTER 1 DAY 05/02/19 03:55 Aerobic Blood Culture - Preliminary Blood - Venous NO GROWTH AFTER 1 DAY Anaerobic Blood Culture - Preliminary NO GROWTH AFTER 1 DAY Orders Last 24hrs: Active Orders 24 hr Category Date Time Status Chest 1V Frontal [CR] Routine Exams 05/04/19 07:00 Ordered BASIC METABOLIC PANEL,BMP [CHEM] AM Lab 05/04/19 05:11 Ordered BASIC METABOLIC PANEL,BMP [CHEM] AM Lab 05/05/19 05:11 Ordered BASIC METABOLIC PANEL,BMP [CHEM] AM Lab 05/06/19 05:11 Ordered C-REACTIVE PROTEIN [CHEM] AM Lab 05/04/19 05:11 Ordered C-REACTIVE PROTEIN [CHEM] AM Lab 05/05/19 05:11 Ordered C-REACTIVE PROTEIN [CHEM] AM Lab 05/06/19 05:11 Ordered CBC WITH AUTO DIFF [HEME] AM Lab 05/04/19 05:11 Ordered CBC WITH AUTO DIFF [HEME] AM Lab 05/05/19 05:11 Ordered CBC WITH AUTO DIFF [HEME] AM Lab 05/06/19 05:11 Ordered CULTURE SPUTUM + SMEAR [RM] Stat Lab 05/02/19 20:00 Results MAGNESIUM [CHEM] AM Lab 05/04/19 05:11 Ordered MAGNESIUM [CHEM] AM Lab 05/05/19 05:11 Ordered MAGNESIUM [CHEM] AM Lab 05/06/19 05:11 Ordered Azithromycin [Zithromax] 500 mg Med 05/03/19 12:00 Active Sodium Chloride 0.9% [Normal Saline] 250 ml IV Q24H Levothyroxine Med 05/03/19 06:00 Active 112 mcg PO ACBREAKFAST Multivitamins,Therapeutic [Thera] Med 05/03/19 09:00 Active 1 each PO DAILY Saccharomyces Boulardii [Florastor] Med 05/03/19 21:00 Active 250 mg PO BID methylPREDNISolone Sod Succ [Solu-MEDROL] Med 05/03/19 12:00 Active 80 mg IVPUSH Q8H Medication Orders Acetaminophen (Tylenol) 650 mg PO Q4H PRN PRN Reason: Pain (Mild 1-3)/fever Last Admin: 05/03/19 16:44 Dose: 650 mg Admin: 05/03/19 06:39 Dose: 650 mg Admin: 05/02/19 14:31 Dose: 650 mg Admin: 05/02/19 10:34 Dose: 650 mg Hydrocodone Bitart/Acetaminophen ([place] 325-5 Mg) 1 tab PO Q4H PRN PRN Reason: Pain (moderate 4-6) Albuterol/Ipratropium (Duoneb 3.0-0.5 Mg/3 Ml) 3 ml NEB Q4H PRN PRN Reason: Shortness Of Breath/wheezing Last Admin: 05/03/19 17:32 Dose: 3 ml Admin: 05/02/19 21:09 Dose: 3 ml Admin: 05/02/19 12:58 Dose: 3 ml Bisacodyl (Dulcolax) 5 mg PO DAILY PRN PRN Reason: Constipation Docusate Sodium (Colace) 100 mg PO BID PRN PRN Reason: Constipation Guaifenesin/Phenylephrine HCl (Robitussin Dm) 10 ml PO Q4H PRN PRN Reason: Cough Last Admin: 05/03/19 13:45 Dose: 10 ml Admin: 05/03/19 09:19 Dose: 10 ml Admin: 05/03/19 03:48 Dose: 10 ml Admin: 05/02/19 20:31 Dose: 10 ml Admin: 05/02/19 10:10 Dose: 10 ml Hydromorphone HCl (Dilaudid) 0.25 mg IVPUSH Q2H PRN PRN Reason: Pain (severe 7-10) Promethazine HCl 12.5 mg/ (Sodium Chloride) 50.5 mls @ 100 mls/hr IV Q6H PRN PRN Reason: Nausea/Vomiting Azithromycin 500 mg/ Sodium (Chloride) 250 mls @ 250 mls/hr IV Q24H KARMEN Last Admin: 05/03/19 11:57 Dose: 250 mls/hr Levothyroxine Sodium (Levothyroxine) 112 mcg PO ACBREAKFAST KARMEN Last Admin: 05/03/19 13:24 Dose: Not Given Admin: 05/03/19 04:57 Dose: 112 mcg Methylprednisolone Sodium Succinate (Solu-Medrol) 80 mg IVPUSH Q8H [facility] Last Admin: 05/03/19 11:57 Dose: 80 mg Metoprolol Tartrate (Lopressor) 75 mg PO BID [facility] Last Admin: 05/03/19 09:01 Dose: 75 mg Admin: 05/02/19 20:23 Dose: Admin: 05/02/19 10:09 Dose: 75 mg Multivitamins (Thera) 1 each PO DAILY [facility] Last Admin: 05/03/19 09:02 Dose: 1 each Ondansetron HCl (Zofran) 4 mg IV Q6H PRN PRN Reason: Nausea/Vomiting Last Admin: 05/03/19 12:27 Dose: 4 mg Saccharomyces Boulardii (Florastor) 250 mg PO BID [facility] Senna/Docusate Sodium (Senna Plus) 1 tab PO BID PRN PRN Reason: Constipation Temazepam (Restoril) 7.5 mg PO BEDTIME PRN PRN Reason: Sleep Last Admin: 05/02/19 20:25 Dose: 7.5 mg Assessment/Plan Comment:: The patient was seen and examined in concert with the medical student. The admission assessment and plans were discussed and agreed upon with me. Patient is coming in primarily for RAD/COPD with Bronchitis. See above for the formulated treatment plan. - Mortality Measure Prognosis:: Good
[2019-05-02] MEDS ORDERED: Bisacodyl 5 MG Tab PO PRN (09:30)
[2019-05-02] MEDS ORDERED: HYDROmorphone 0.5 MG/0.5 ML Syringe IVPUSH PRN (09:30)
[2019-05-02] MEDS ORDERED: Promethazine 12.5 MG in Sodium Chloride 0.9% 50 ML IV PRN (09:30)
[2019-05-02] MEDS ORDERED: Docusate Sodium 100 MG Cap PO PRN (09:30)
[2019-05-02] MEDS ORDERED: Ondansetron 4 MG/2 ML SDV IV PRN (09:30)
[2019-05-02] MEDS ORDERED: Acetaminophen/HYDROcodone 325-5 MG Tab PO PRN (09:30)
[2019-05-02] MEDS: Metoprolol Tartrate 50 MG Tab PO SCH ×2 (10:09→20:23)
[2019-05-02] MEDS: guaiFENesin/Dextromethorphan 100-10 MG/5 ML Soln 5 ML Cup PO PRN ×2 (10:10→20:31)
[2019-05-02] MEDS: Acetaminophen 325 MG Tab PO PRN ×2 (10:34→14:31)
[2019-05-02] MEDS: Albuterol/Ipratropium 3.0-0.5 MG/3 ML Neb Soln NEB PRN ×2 (12:58→21:09)
[2019-05-02] MEDS: Temazepam 7.5 MG Cap PO PRN (20:25)
[2019-05-03] MEDS: guaiFENesin/Dextromethorphan 100-10 MG/5 ML Soln 5 ML Cup PO PRN ×4 (03:48→21:17)
[2019-05-03] MEDS: Sodium Chloride 0.9% 1,000 ML IV SCH (04:56)
[2019-05-03] MEDS: Levothyroxine 112 MCG Tab PO SCH ×2 (04:57→13:24)
[2019-05-03] MEDS: Acetaminophen 325 MG Tab PO PRN ×2 (06:39→16:44)
[2019-05-03] MEDS: Metoprolol Tartrate 50 MG Tab PO SCH ×2 (09:01→21:14)
[2019-05-03] MEDS: Multivitamins,Therapeutic Tab PO SCH (09:02)
--- NOTE | 2019-05-03 09:40 | CT ---
CT chest Technique: Multiple axial sections through the chest are obtained. Study performed as a pulmonary angiogram protocol. Comparison: Prior chest x-ray from the same day (4:03 AM). Findings: Pulmonary arteries are not optimally opacified. No filling defects are seen within the main or segmental branches. Mild adenopathy is seen within the right hilar region. Multiple mediastinal lymph nodes are noted with largest lymph node measuring 2.3 cm. No pericardial thickening is seen. Small hiatal hernia is noted. Partially visualized small calcified gallstones are seen within the gallbladder. No axillary adenopathy is seen. Three pleural-based nodules are identified within the right lung base and one within the left lung base. These measure between 4 and 7 mm. Lung markings are mildly increased which is felt to be chronic and mostly accentuated due to body habitus. No acute parenchymal change is appreciated. Surgical clips noted within the upper chest compatible with previous thyroidectomy. Impression: 1. Slightly prominent mediastinal and right hilar lymph nodes. Findings most likely represent prior inflammatory process. Four small subpleural nodules within the right lung base and left lung base. Recommend follow-up noncontrast chest CT to confirm above findings are stable. Follow up exam would occur in October,. 2. No evidence of pulmonary embolism within the main or segmental branches. 3. Two partially visualized gallstones within the gallbladder. 4. Other findings believed to be incidental as noted above. Diagnostic code #3 I agree with preliminary report from [facility] (with additional recommendation of follow-up CT chest in 6 months), finalized on 05/02/19, 6:28 AM Central Time, code #2
--- NOTE | 2019-05-03 09:40 | CR ---
Chest: Portable view of the chest was obtained. Comparison: Prior chest x-ray of 06/07/18. Heart size and mediastinum are normal. Lungs are clear with no acute parenchymal change. Bony structures are grossly intact. Pressure: 1. Nothing acute is appreciated on portable chest x-ray. Diagnostic code #1
[2019-05-03] MEDS: methylPREDNISolone Sodium Succinate 40 MG/1 ML SDV IVPUSH SCH ×2 (11:57→21:13)
[2019-05-03] MEDS ORDERED: Azithromycin 500 MG in Sodium Chloride 0.9% 250 ML IV SCH (12:00)
--- NOTE | 2019-05-03 12:39 | PCM.PN ---
<Charla Bell - Last Filed: 05/03/19 12:34> - General Info Date of Service: 05/03/19 Admission Dx/Problem (Free Text): Admission Diagnosis/Problem Admission Diagnosis/Problem Hypoxia Subjective Update: Patient has had increase in her wheezing and increased coughing last night, but feels that she is improving in regards to her breathing. She does continue to have some chest tightness and muscle soreness from coughing. She has been ambulating well. She denies constipation and has had good urination. Functional Status: Reports: Tolerating Diet, Ambulating, Urinating - Review of Systems General: Reports: No Symptoms HEENT: Reports: No Symptoms Pulmonary: Reports: Shortness of Breath, Cough, Wheezing Cardiovascular: Reports: No Symptoms Gastrointestinal: Reports: No Symptoms Genitourinary: Reports: No Symptoms Musculoskeletal: Reports: No Symptoms Skin: Reports: No Symptoms Neurological: Reports: No Symptoms Psychiatric: Reports: No Symptoms - Patient Data Vitals - Most Recent: Last Vital Signs Temp 98.1 F 05/03/19 08:36 Pulse 83 05/03/19 09:01 Resp 16 05/03/19 08:36 BP 120/58 L 05/03/19 09:01 Pulse Ox 94 L 05/03/19 08:39 Weight - Most Recent: 90.718 kg I&O - Last 24 Hours: Intake & Output 05/02/19 05/03/19 05/03/19 22:59 06:59 14:59 Intake Total 2679 1541 120 Output Total 1200 1000 Balance 1479 541 120 Lab Results Last 24 Hours: Laboratory Results - last 24 hr 05/03/19 05/03/19 Range/Units 05:15 05:15 WBC 11.41 H (3.98-10.04) K/mm3 RBC 4.28 (3.98-5.22) M/mm3 Hgb 12.1 D (11.2-15.7) gm/dl Hct 37.4 (34.1-44.9) % MCV 87.4 (79.4-94.8) fl MCH 28.3 (25.6-32.2) pg MCHC 32.4 (32.2-35.5) g/dl RDW Std Deviation 45.8 (36.4-46.3) fL Plt Count 139 L (182-369) K/mm3 MPV 11.8 (9.4-12.3) fl Neut % (Auto) 70.5 (34.0-71.1) % Lymph % (Auto) 17.2 L (19.3-51.7) % Major % (Auto) 9.3 (4.7-12.5) % Eos % (Auto) 2.5 (0.7-5.8) Baso % (Auto) 0.3 (0.1-1.2) % Neut # (Auto) 8.06 H (1.56-6.13) K/mm3 Lymph # (Auto) 1.96 (1.18-3.74) K/mm3 Major # (Auto) 1.06 H (0.24-0.36) K/mm3 Eos # (Auto) 0.28 (0.04-0.36) K/mm3 Baso # (Auto) 0.03 (0.01-0.08) K/mm3 Sodium 141 (136-145) mEq/L Potassium 3.6 (3.5-5.1) mEq/L Chloride 108 H (98-107) mEq/L Carbon Dioxide 24 (21-32) mEq/L Anion Gap 12.6 (5-15) BUN 17 (7-18) mg/dL Creatinine 0.7 (0.55-1.02) mg/dL Est Cr Clr Drug Dosing 76.00 mL/min Estimated GFR (MDRD) > 60 (>60) mL/min BUN/Creatinine Ratio 24.3 H (14-18) Glucose 101 (74-106) mg/dL Calcium 8.4 L (8.5-10.1) mg/dL Magnesium 2.0 (1.8-2.4) mg/dl C-Reactive Protein 3.7 H* (<1.0) mg/dL [place] Results Last 24 Hours: Microbiology 05/02/19 20:00 Gram Stain - Preliminary Sputum - Expectorated Sputum Culture - Preliminary 05/02/19 04:05 Aerobic Blood Culture - Preliminary Blood - Venous - Lab Draw NO GROWTH AFTER 1 DAY Anaerobic Blood Culture - Preliminary NO GROWTH AFTER 1 DAY 05/02/19 03:55 Aerobic Blood Culture - Preliminary Blood - Venous NO GROWTH AFTER 1 DAY Anaerobic Blood Culture - Preliminary NO GROWTH AFTER 1 DAY Med Orders - Current: Current Medications Acetaminophen (Tylenol) 650 mg PO Q4H PRN PRN Reason: Pain (Mild 1-3)/fever Last Admin: 05/03/19 06:39 Dose: 650 mg Hydrocodone Bitart/Acetaminophen ([place] 325-5 Mg) 1 tab PO Q4H PRN PRN Reason: Pain (moderate 4-6) Albuterol/Ipratropium (Duoneb 3.0-0.5 Mg/3 Ml) 3 ml NEB Q4H PRN PRN Reason: Shortness Of Breath/wheezing Last Admin: 05/02/19 21:09 Dose: 3 ml Bisacodyl (Dulcolax) 5 mg PO DAILY PRN PRN Reason: Constipation Docusate Sodium (Colace) 100 mg PO BID PRN PRN Reason: Constipation Guaifenesin/Phenylephrine HCl (Robitussin Dm) 10 ml PO Q4H PRN PRN Reason: Cough Last Admin: 05/03/19 09:19 Dose: 10 ml Hydromorphone HCl (Dilaudid) 0.25 mg IVPUSH Q2H PRN PRN Reason: Pain (severe 7-10) Promethazine HCl 12.5 mg/ (Sodium Chloride) 50.5 mls @ 100 mls/hr IV Q6H PRN PRN Reason: Nausea/Vomiting Azithromycin 500 mg/ Sodium (Chloride) 250 mls @ 250 mls/hr IV Q24H [facility] Last Admin: 05/03/19 11:57 Dose: 250 mls/hr Magnesium Sulfate/Dextrose 1 (gm/ Premix) 100 mls @ 100 mls/hr IV ONETIME ONE Stop: 05/03/19 13:59 Last Admin: 05/03/19 12:00 Dose: 100 mls/hr Levothyroxine Sodium (Levothyroxine) 112 mcg PO ACBREAKFAST [facility] Last Admin: 05/03/19 04:57 Dose: 112 mcg Methylprednisolone Sodium Succinate (Solu-Medrol) 80 mg IVPUSH Q8H [facility] Last Admin: 05/03/19 11:57 Dose: 80 mg Metoprolol Tartrate (Lopressor) 75 mg PO BID [facility] Last Admin: 05/03/19 09:01 Dose: 75 mg Multivitamins (Thera) 1 each PO DAILY [facility] Last Admin: 05/03/19 09:02 Dose: 1 each Ondansetron HCl (Zofran) 4 mg IV Q6H PRN PRN Reason: Nausea/Vomiting Last Admin: 05/03/19 12:27 Dose: 4 mg Senna/Docusate Sodium (Senna Plus) 1 tab PO BID PRN PRN Reason: Constipation Temazepam (Restoril) 7.5 mg PO BEDTIME PRN PRN Reason: Sleep Last Admin: 05/02/19 20:25 Dose: 7.5 mg Discontinued Medications Acetaminophen (Tylenol) 650 mg PO NOW ONE Stop: 05/02/19 05:24 Last Admin: 05/02/19 05:27 Dose: 650 mg Albuterol/Ipratropium (Duoneb 3.0-0.5 Mg/3 Ml) 3 ml NEB ONETIME ONE Stop: 05/02/19 03:39 Last Admin: 05/02/19 03:44 Dose: 3 ml Albuterol/Ipratropium (Duoneb 3.0-0.5 Mg/3 Ml) 3 ml NEB ONETIME ONE Stop: 05/02/19 05:00 Last Admin: 05/02/19 05:07 Dose: 3 ml Albuterol/Ipratropium (Duoneb 3.0-0.5 Mg/3 Ml) 3 ml NEB ONETIME ONE Stop: 05/02/19 06:13 Last Admin: 05/02/19 06:18 Dose: 3 ml Sodium Chloride (Normal Saline) 1,000 mls [facility] Last Admin: 05/03/19 04:56 Dose: 125 mls/hr Sodium Chloride (Normal Saline) 100 mls @ 5 [facility]ls[facility] Last Admin: 05/02/19 04:43 Dose: 5 mls/sec Levofloxacin/Dextrose 750 mg/ (Premix) 150 mls @ 100 mls/hr IV ONETIME ONE Stop: 05/02/19 08:33 Last Admin: 05/02/19 07:24 Dose: 100 mls/hr Iopamidol (Isovue-370 (76%)) 100 ml IVPUSH ONETIME ONE Stop: 05/02/19 04:43 Last Admin: 05/02/19 04:43 Dose: 100 ml Methylprednisolone Sodium Succinate (Solu-Medrol) 125 mg IVPUSH ONETIME ONE Stop: 05/02/19 04:26 Last Admin: 05/02/19 04:47 Dose: 125 mg - Exam General: Alert, Oriented HEENT: Pupils Equal, EOMI, Mucous Membr. Moist/[place] Lungs: Normal Respiratory Effort, Wheezing Cardiovascular: Regular Rate, Regular Rhythm GI/Abdominal Exam: Normal Bowel Sounds, Soft, Non-Tender, No Organomegaly, No Distention Back Exam: Normal Inspection Extremities: Normal Inspection, Non-Tender, No Pedal Edema, Normal Capillary Refill Peripheral Pulses: 2+: Posterior Tibial (L), Posterior Tibial (R), Dorsalis Pedis (L), Dorsalis Pedis (R) Skin: Warm, Dry, Intact Neurological: No New Focal Deficit Psy/Mental Status: Alert, Normal Affect, Normal Mood - Problem List & Annotations (1) Reactive airway disease SNOMED Code(s): 024174988781 Code(s): J45.909 - UNSPECIFIED ASTHMA, UNCOMPLICATED Status: Acute Current Visit: Yes - Problem List Review Problem List Initiated/Reviewed/Updated: Yes - Plan Plan:: Assessment: * Reactive airway disease/probable COPD: following hospitalization, recommend the patient be evaluated for COPD due to 31 pack year history of smoking * Cholelithiasis: follow up with primary care provider, advise low fat diet * Pulmonary nodules: monitor and follow up with primary care provider Plan: * Encourage smoking cessation; provide nicotine patch during hospitalization * Albuterol/Ipratropium Q4 prn * Dextromethorphan/Guaifenesin for cough suppression * Continue IS/FV * Routine labs in the am * Replace magnesium levels * Diet as tolerated * Ambulation as tolerated * Repeat Chest Xray in the am * Consult with respiratory therapy * SCD for VTE prophylaxis <Sunita Parkinson T - Last Filed: 05/03/19 19:26> - Patient Data Vitals - Most Recent: Last Vital Signs Temp 36.6 C 05/03/19 12:35 Pulse 66 05/03/19 13:47 Resp 18 05/03/19 12:35 BP 111/65 05/03/19 12:35 Pulse Ox 96 05/03/19 17:43 I&O - Last 24 Hours: Intake & Output 05/03/19 05/03/19 05/03/19 06:59 14:59 22:59 Intake Total 1541 120 300 Output Total 1000 Balance 541 120 300 Lab Results Last 24 Hours: Laboratory Results - last 24 hr 05/03/19 05/03/19 05/03/19 Range/Units 05:15 05:15 15:25 WBC 11.41 H (3.98-10.04) K/mm3 RBC 4.28 (3.98-5.22) M/mm3 Hgb 12.1 D (11.2-15.7) gm/dl Hct 37.4 (34.1-44.9) % MCV 87.4 (79.4-94.8) fl MCH 28.3 (25.6-32.2) pg MCHC 32.4 (32.2-35.5) g/dl RDW Std Deviation 45.8 (36.4-46.3) fL Plt Count 139 L (182-369) K/mm3 MPV 11.8 (9.4-12.3) fl Neut % (Auto) 70.5 (34.0-71.1) % Lymph % (Auto) 17.2 L (19.3-51.7) % Major % (Auto) 9.3 (4.7-12.5) % Eos % (Auto) 2.5 (0.7-5.8) Baso % (Auto) 0.3 (0.1-1.2) % Neut # (Auto) 8.06 H (1.56-6.13) K/mm3 Lymph # (Auto) 1.96 (1.18-3.74) K/mm3 Major # (Auto) 1.06 H (0.24-0.36) K/mm3 Eos # (Auto) 0.28 (0.04-0.36) K/mm3 Baso # (Auto) 0.03 (0.01-0.08) K/mm3 Sodium 141 (136-145) mEq/L Potassium 3.6 (3.5-5.1) mEq/L Chloride 108 H (98-107) mEq/L Carbon Dioxide 24 (21-32) mEq/L Anion Gap 12.6 (5-15) BUN 17 (7-18) mg/dL Creatinine 0.7 (0.55-1.02) mg/dL Est Cr Clr Drug Dosing 76.00 mL/min Estimated GFR (MDRD) > 60 (>60) mL/min BUN/Creatinine Ratio 24.3 H (14-18) Glucose 101 (74-106) mg/dL Calcium 8.4 L (8.5-10.1) mg/dL Magnesium 2.0 (1.8-2.4) mg/dl C-Reactive Protein 3.7 H* (<1.0) mg/dL Urine Color Light yellow (Yellow) Urine Appearance Clear (Clear) Urine pH 5.5 (5.0-8.0) Ur Specific [place] 1.015 (1.005-1.030) Urine Protein Negative (Negative) Urine Glucose (UA) Negative (Negative) Urine Ketones Negative (Negative) Urine Occult Blood Negative (Negative) Urine Nitrite Negative (Negative) Urine Bilirubin Negative (Negative) Urine Urobilinogen 0.2 (0.2-1.0) Ur Leukocyte Esterase Negative (Negative) Urine RBC 0-5 (0-5) /hpf Urine WBC 0-5 (0-5) /hpf Ur Squamous Epith Cells 0-5 (0-5) /hpf Urine Bacteria Occasional (FEW) /hpf Urine Mucus Not seen (FEW) /hpf Hong Results Last 24 Hours: Microbiology 05/02/19 20:00 Gram Stain - Final Sputum - Expectorated Sputum Culture - Preliminary 05/02/19 04:05 Aerobic Blood Culture - Preliminary Blood - Venous - Lab Draw NO GROWTH AFTER 1 DAY Anaerobic Blood Culture - Preliminary NO GROWTH AFTER 1 DAY 05/02/19 03:55 Aerobic Blood Culture - Preliminary Blood - Venous NO GROWTH AFTER 1 DAY Anaerobic Blood Culture - Preliminary NO GROWTH AFTER 1 DAY Med Orders - Current: Current Medications Acetaminophen (Tylenol) 650 mg PO Q4H PRN PRN Reason: Pain (Mild 1-3)/fever Last Admin: 05/03/19 16:44 Dose: 650 mg Hydrocodone Bitart/Acetaminophen ([place] 325-5 Mg) 1 tab PO Q4H PRN PRN Reason: Pain (moderate 4-6) Albuterol/Ipratropium (Duoneb 3.0-0.5 Mg/3 Ml) 3 ml NEB Q4H PRN PRN Reason: Shortness Of Breath/wheezing Last Admin: 05/03/19 17:32 Dose: 3 ml Bisacodyl (Dulcolax) 5 mg PO DAILY PRN PRN Reason: Constipation Docusate Sodium (Colace) 100 mg PO BID PRN PRN Reason: Constipation Guaifenesin/Phenylephrine HCl (Robitussin Dm) 10 ml PO Q4H PRN PRN Reason: Cough Last Admin: 05/03/19 13:45 Dose: 10 ml Hydromorphone HCl (Dilaudid) 0.25 mg IVPUSH Q2H PRN PRN Reason: Pain (severe 7-10) Promethazine HCl 12.5 mg/ (Sodium Chloride) 50.5 mls @ 100 mls/hr IV Q6H PRN PRN Reason: Nausea/Vomiting Azithromycin 500 mg/ Sodium (Chloride) 250 mls @ 250 mls/hr IV Q24H [facility] Last Admin: 05/03/19 11:57 Dose: 250 mls/hr Levothyroxine Sodium (Levothyroxine) 112 mcg PO ACBREAKFAST [facility] Last Admin: 05/03/19 13:24 Dose: Not Given Methylprednisolone Sodium Succinate (Solu-Medrol) 80 mg IVPUSH Q8H [facility] Last Admin: 05/03/19 11:57 Dose: 80 mg Metoprolol Tartrate (Lopressor) 75 mg PO BID [facility] Last Admin: 05/03/19 09:01 Dose: 75 mg Multivitamins (Thera) 1 each PO DAILY [facility] Last Admin: 05/03/19 09:02 Dose: 1 each Ondansetron HCl (Zofran) 4 mg IV Q6H PRN PRN Reason: Nausea/Vomiting Last Admin: 05/03/19 12:27 Dose: 4 mg Saccharomyces Boulardii (Florastor) 250 mg PO BID [facility] Senna/Docusate Sodium (Senna Plus) 1 tab PO BID PRN PRN Reason: Constipation Temazepam (Restoril) 7.5 mg PO BEDTIME PRN PRN Reason: Sleep Last Admin: 05/02/19 20:25 Dose: 7.5 mg Discontinued Medications Acetaminophen (Tylenol) 650 mg PO NOW ONE Stop: 05/02/19 05:24 Last Admin: 05/02/19 05:27 Dose: 650 mg Albuterol/Ipratropium (Duoneb 3.0-0.5 Mg/3 Ml) 3 ml NEB ONETIME ONE Stop: 05/02/19 03:39 Last Admin: 05/02/19 03:44 Dose: 3 ml Albuterol/Ipratropium (Duoneb 3.0-0.5 Mg/3 Ml) 3 ml NEB ONETIME ONE Stop: 05/02/19 05:00 Last Admin: 05/02/19 05:07 Dose: 3 ml Albuterol/Ipratropium (Duoneb 3.0-0.5 Mg/3 Ml) 3 ml NEB ONETIME ONE Stop: 05/02/19 06:13 Last Admin: 05/02/19 06:18 Dose: 3 ml Sodium Chloride (Normal Saline) 1,000 mls @ 125 mls/hr IV ASDIRECTED [facility] Last Admin: 05/03/19 04:56 Dose: 125 mls/hr Sodium Chloride (Normal Saline) 100 mls @ 5 mls/sec IV ASDIRECTED [facility] Last Admin: 05/02/19 04:43 Dose: 5 mls/sec Levofloxacin/Dextrose 750 mg/ (Premix) 150 mls @ 100 mls/hr IV ONETIME ONE Stop: 05/02/19 08:33 Last Admin: 05/02/19 07:24 Dose: 100 mls/hr Magnesium Sulfate/Dextrose 1 (gm/ Premix) 100 mls @ 100 mls/hr IV ONETIME ONE Stop: 05/03/19 13:59 Last Admin: 05/03/19 12:00 Dose: 100 mls/hr Iopamidol (Isovue-370 (76%)) 100 ml IVPUSH ONETIME ONE Stop: 05/02/19 04:43 Last Admin: 05/02/19 04:43 Dose: 100 ml Methylprednisolone Sodium Succinate (Solu-Medrol) 125 mg IVPUSH ONETIME ONE Stop: 05/02/19 04:26 Last Admin: 05/02/19 04:47 Dose: 125 mg - My Orders Last 24 Hours: My Active Orders 05/02/19 20:00 CULTURE SPUTUM + SMEAR [RM] Stat 05/03/19 06:00 Levothyroxine 112 mcg PO ACBREAKFAST 05/03/19 09:00 Multivitamins,Therapeutic [Thera] 1 each PO DAILY 05/03/19 12:00 Azithromycin [Zithromax] 500 mg Sodium Chloride 0.9% [Normal Saline] 250 ml IV Q24H methylPREDNISolone Sod Succ [Solu-MEDROL] 80 mg IVPUSH Q8H 05/03/19 21:00 Saccharomyces Boulardii [Florastor] 250 mg PO BID 05/04/19 05:11 BASIC METABOLIC PANEL,BMP [CHEM] AM C-REACTIVE PROTEIN [CHEM] AM CBC WITH AUTO DIFF [HEME] AM MAGNESIUM [CHEM] AM 05/04/19 07:00 Chest 1V Frontal [CR] Routine 05/05/19 05:11 BASIC METABOLIC PANEL,BMP [CHEM] AM C-REACTIVE PROTEIN [CHEM] AM CBC WITH AUTO DIFF [HEME] AM MAGNESIUM [CHEM] AM 05/06/19 05:11 BASIC METABOLIC PANEL,BMP [CHEM] AM C-REACTIVE PROTEIN [CHEM] AM CBC WITH AUTO DIFF [HEME] AM MAGNESIUM [CHEM] AM - Plan Plan:: Patient seen and examined at beside in concert with the medical student. The assessment and plans were discussed and agreed upon with me. Patient had no overnight issues. She is doing much better this morning and she is now on 1- 1.5L NC sating anywhere from 93-96%. Her labs are fairly unremarkable. Will continue with treatment as noted above.
[2019-05-03] MEDS: Albuterol/Ipratropium 3.0-0.5 MG/3 ML Neb Soln NEB PRN ×2 (17:32→20:53)
[2019-05-03] MEDS: Temazepam 7.5 MG Cap PO PRN (21:14)
[2019-05-03] MEDS: Saccharomyces Boulardii (Probiotic) 250 MG Cap PO SCH (21:14)
[2019-05-04] MEDS: Acetaminophen 325 MG Tab PO PRN ×2 (00:13→04:53)
[2019-05-04] MEDS: methylPREDNISolone Sodium Succinate 40 MG/1 ML SDV IVPUSH SCH ×2 (04:50→16:47)
[2019-05-04] MEDS: Albuterol/Ipratropium 3.0-0.5 MG/3 ML Neb Soln NEB PRN ×2 (04:56→20:42)
[2019-05-04] MEDS: Levothyroxine 112 MCG Tab PO SCH (05:07)
--- NOTE | 2019-05-04 07:07 | PCM.PN ---
- General Info Date of Service: 05/04/19 Admission Dx/Problem (Free Text): Admission Diagnosis/Problem Admission Diagnosis/Problem Hypoxia Subjective Update: No overnight or acute issues. She feels pretty good this morning. Afebrile w/o leukocytosis. She has been ambulating outside her room. Functional Status: Reports: Pain Controlled, Tolerating Diet, Ambulating, Urinating. Denies: New Symptoms - Review of Systems General: Denies: Fever, Weakness, Fatigue, Malaise, Chills HEENT: Reports: No Symptoms Pulmonary: Reports: Cough. Denies: Shortness of Breath, Wheezing Cardiovascular: Denies: Chest Pain, Dyspnea on Exertion, Lightheadedness Gastrointestinal: Denies: Abdominal Pain, Nausea, Vomiting Genitourinary: Reports: No Symptoms Musculoskeletal: Reports: No Symptoms Skin: Denies: Cyanosis, Mottled, Pallor, Diaphoresis, Bruising Neurological: Denies: Confusion, Difficulty Walking, Weakness, Gait Disturbance Psychiatric: Denies: Depression, Anxiety, Agitation, Hallucinations - Patient Data Vitals - Most Recent: Last Vital Signs Temp 36.8 C 05/04/19 04:57 Pulse 71 05/04/19 04:57 Resp 20 05/04/19 04:57 BP 112/64 05/04/19 04:57 Pulse Ox 91 L 05/04/19 04:58 Weight - Most Recent: 96.479 kg I&O - Last 24 Hours: Intake & Output 05/03/19 05/04/19 05/04/19 22:59 06:59 14:59 Intake Total 2530 1600 Output Total 800 1700 Balance 1730 -100 Lab Results Last 24 Hours: Laboratory Results - last 24 hr 05/03/19 05/04/19 05/04/19 Range/Units 15:25 05:33 05:33 WBC 9.90 (3.98-10.04) K/mm3 RBC 4.50 (3.98-5.22) M/mm3 Hgb 12.8 (11.2-15.7) gm/dl Hct 39.3 (34.1-44.9) % MCV 87.3 (79.4-94.8) fl MCH 28.4 (25.6-32.2) pg MCHC 32.6 (32.2-35.5) g/dl RDW Std Deviation 45.3 (36.4-46.3) fL Plt Count 130 L (182-369) K/mm3 MPV 11.9 (9.4-12.3) fl Neut % (Auto) 81.5 H (34.0-71.1) % Lymph % (Auto) 15.1 L (19.3-51.7) % [place] % (Auto) 2.7 L (4.7-12.5) % Eos % (Auto) 0.1 L (0.7-5.8) Baso % (Auto) 0.1 (0.1-1.2) % Neut # (Auto) 8.07 H (1.56-6.13) K/mm3 Lymph # (Auto) 1.49 (1.18-3.74) K/mm3 [place] # (Auto) 0.27 (0.24-0.36) K/mm3 Eos # (Auto) 0.01 L (0.04-0.36) K/mm3 Baso # (Auto) 0.01 (0.01-0.08) K/mm3 Sodium 141 (136-145) mEq/L Potassium 3.9 (3.5-5.1) mEq/L Chloride 106 (98-107) mEq/L Carbon Dioxide 22 (21-32) mEq/L Anion Gap 16.9 H (5-15) BUN 20 H (7-18) mg/dL Creatinine 0.9 (0.55-1.02) mg/dL Est Cr Clr Drug Dosing 59.11 mL/min Estimated GFR (MDRD) > 60 (>60) mL/min BUN/Creatinine Ratio 22.2 H (14-18) Glucose 135 H (74-106) mg/dL Calcium 9.0 (8.5-10.1) mg/dL Magnesium 2.2 (1.8-2.4) mg/dl C-Reactive Protein 1.9 H* (<1.0) mg/dL Urine Color Light yellow (Yellow) Urine Appearance Clear (Clear) Urine pH 5.5 (5.0-8.0) Ur Specific [place] 1.015 (1.005-1.030) Urine Protein Negative (Negative) Urine Glucose (UA) Negative (Negative) Urine Ketones Negative (Negative) Urine Occult Blood Negative (Negative) Urine Nitrite Negative (Negative) Urine Bilirubin Negative (Negative) Urine Urobilinogen 0.2 (0.2-1.0) Ur Leukocyte Esterase Negative (Negative) Urine RBC 0-5 (0-5) /hpf Urine WBC 0-5 (0-5) /hpf Ur Squamous Epith Cells 0-5 (0-5) /hpf Urine Bacteria Occasional (FEW) /hpf Urine Mucus Not seen (FEW) /hpf Hong Results Last 24 Hours: Microbiology 05/02/19 04:05 Aerobic Blood Culture - Preliminary Blood - Venous - Lab Draw NO GROWTH AFTER 2 DAYS Anaerobic Blood Culture - Preliminary NO GROWTH AFTER 2 DAYS 05/02/19 03:55 Aerobic Blood Culture - Preliminary Blood - Venous NO GROWTH AFTER 2 DAYS Anaerobic Blood Culture - Preliminary NO GROWTH AFTER 2 DAYS 05/02/19 20:00 Gram Stain - Final Sputum - Expectorated Sputum Culture - Preliminary Med Orders - Current: Current Medications Acetaminophen (Tylenol) 650 mg PO Q4H PRN PRN Reason: Pain (Mild 1-3)/fever Last Admin: 05/04/19 04:53 Dose: 650 mg Hydrocodone Bitart/Acetaminophen ([place] 325-5 Mg) 1 tab PO Q4H PRN PRN Reason: Pain (moderate 4-6) Albuterol/Ipratropium (Duoneb 3.0-0.5 Mg/3 Ml) 3 ml NEB Q4H PRN PRN Reason: Shortness Of Breath/wheezing Last Admin: 05/04/19 04:56 Dose: 3 ml Bisacodyl (Dulcolax) 5 mg PO DAILY PRN PRN Reason: Constipation Docusate Sodium (Colace) 100 mg PO BID PRN PRN Reason: Constipation Guaifenesin/Phenylephrine HCl (Robitussin Dm) 10 ml PO Q4H PRN PRN Reason: Cough Last Admin: 05/03/19 21:17 Dose: 10 ml Hydromorphone HCl (Dilaudid) 0.25 mg IVPUSH Q2H PRN PRN Reason: Pain (severe 7-10) Promethazine HCl 12.5 mg/ (Sodium Chloride) 50.5 mls @ 100 mls/hr IV Q6H PRN PRN Reason: Nausea/Vomiting Azithromycin 500 mg/ Sodium (Chloride) 250 mls @ 250 mls/hr IV Q24H [facility] Last Admin: 05/03/19 11:57 Dose: 250 mls/hr Levothyroxine Sodium (Levothyroxine) 112 mcg PO ACBREAKFAST [facility] [place] Last Admin: 05/04/19 05:07 Dose: 112 mcg Methylprednisolone Sodium Succinate (Solu-Medrol) 80 mg IVPUSH Q8H [facility] [place] Last Admin: 05/04/19 04:50 Dose: 80 mg Metoprolol Tartrate (Lopressor) 75 mg PO BID [facility] [place] Last Admin: 05/03/19 21:14 Dose: 75 mg Multivitamins (Thera) 1 each PO DAILY [facility] [place] Last Admin: 05/03/19 09:02 Dose: 1 each Ondansetron HCl (Zofran) 4 mg IV Q6H PRN PRN Reason: Nausea/Vomiting Last Admin: 05/03/19 12:27 Dose: 4 mg Saccharomyces Boulardii (Florastor) 250 mg PO BID [facility] [place] Last Admin: 05/03/19 21:14 Dose: 250 mg Senna/Docusate Sodium (Senna Plus) 1 tab PO BID PRN PRN Reason: Constipation Temazepam (Restoril) 7.5 mg PO BEDTIME PRN PRN Reason: Sleep Last Admin: 05/03/19 21:14 Dose: 7.5 mg Discontinued Medications Acetaminophen (Tylenol) 650 mg PO NOW ONE Stop: 05/02/19 05:24 Last Admin: 05/02/19 05:27 Dose: 650 mg Albuterol/Ipratropium (Duoneb 3.0-0.5 Mg/3 Ml) 3 ml NEB ONETIME ONE Stop: 05/02/19 03:39 Last Admin: 05/02/19 03:44 Dose: 3 ml Albuterol/Ipratropium (Duoneb 3.0-0.5 Mg/3 Ml) 3 ml NEB ONETIME ONE Stop: 05/02/19 05:00 Last Admin: 05/02/19 05:07 Dose: 3 ml Albuterol/Ipratropium (Duoneb 3.0-0.5 Mg/3 Ml) 3 ml NEB ONETIME ONE Stop: 05/02/19 06:13 Last Admin: 05/02/19 06:18 Dose: 3 ml Sodium Chloride (Normal Saline) 1,000 mls @ 125 mls/hr IV ASDIRECTED [facility] [place] Last Admin: 05/03/19 04:56 Dose: 125 mls/hr Sodium Chloride (Normal Saline) 100 mls @ 5 mls/sec IV ASDIRECTED [facility] Last Admin: 05/02/19 04:43 Dose: 5 mls/sec Levofloxacin/Dextrose 750 mg/ (Premix) 150 mls @ 100 mls/hr IV ONETIME ONE Stop: 05/02/19 08:33 Last Admin: 05/02/19 07:24 Dose: 100 mls/hr Magnesium Sulfate/Dextrose 1 (gm/ Premix) 100 mls @ 100 mls/hr IV ONETIME ONE Stop: 05/03/19 13:59 Last Admin: 05/03/19 12:00 Dose: 100 mls/hr Iopamidol (Isovue-370 (76%)) 100 ml IVPUSH ONETIME ONE Stop: 05/02/19 04:43 Last Admin: 05/02/19 04:43 Dose: 100 ml Methylprednisolone Sodium Succinate (Solu-Medrol) 125 mg IVPUSH ONETIME ONE Stop: 05/02/19 04:26 Last Admin: 05/02/19 04:47 Dose: 125 mg - Exam General: Alert, Oriented, Cooperative, No Acute Distress HEENT: Pupils Equal, Pupils Reactive, EOMI, Mucous Membr. Moist/[place] Neck: Supple Lungs: Clear to Auscultation, Normal Respiratory Effort Cardiovascular: Regular Rate, Regular Rhythm GI/Abdominal Exam: Normal Bowel Sounds, Soft, Non-Tender, No Organomegaly, No Distention, No Abnormal Bruit (Female) Exam: Deferred Back Exam: Normal Inspection, Decreased Range of Motion Extremities: Normal Inspection, Normal Range of Motion, Non-Tender, No Pedal Edema, Normal Capillary Refill Peripheral Pulses: 2+: Dorsalis Pedis (L), Dorsalis Pedis (R) Skin: Warm, Dry, Intact Wound/Incisions: Healing Well Neurological: No New Focal Deficit, Normal Gait Psy/Mental Status: Alert, Normal Affect, Normal Mood - Problem List Review Problem List Initiated/Reviewed/Updated: Yes - My Orders Last 24 Hours: My Active Orders 05/03/19 09:00 Multivitamins,Therapeutic [Thera] 1 each PO DAILY 05/03/19 12:00 Azithromycin [Zithromax] 500 mg Sodium Chloride 0.9% [Normal Saline] 250 ml IV Q24H methylPREDNISolone Sod Succ [Solu-MEDROL] 80 mg IVPUSH Q8H 05/03/19 21:00 Saccharomyces Boulardii [Florastor] 250 mg PO BID 05/04/19 07:00 Chest 1V Frontal [CR] Routine 05/05/19 05:11 BASIC METABOLIC PANEL,BMP [CHEM] AM C-REACTIVE PROTEIN [CHEM] AM CBC WITH AUTO DIFF [HEME] AM MAGNESIUM [CHEM] AM 05/06/19 05:11 BASIC METABOLIC PANEL,BMP [CHEM] AM C-REACTIVE PROTEIN [CHEM] AM CBC WITH AUTO DIFF [HEME] AM MAGNESIUM [CHEM] AM - Plan Plan:: Assessment: * Reactive airway disease/probable COPD, recommend PF after discharge * Nicotine Dependence * Cholelithiasis: follow up with primary care provider, advise low fat diet * Pulmonary nodules: monitor and follow up with primary care provider * Obesity Class II Plan: * She is clinically stable * Encourage smoking cessation * Nicotine patch daily * Albuterol/Ipratropium Q4 prn * Dextromethorphan/Guaifenesin for cough decongestant/expectorant * Continue IS/FV as directed * Dietary consul for weight management * Routine labs in the am * Diet as tolerated * Ambulation as tolerated * RT to assess and treat * SCD for VTE prophylaxis * Possible d/c in AM
--- NOTE | 2019-05-04 08:35 | CR ---
Chest: Portable view of the chest was obtained. Comparison: Prior chest x-ray of 05/02/19. Heart size and mediastinum are stable and within normal limits for portable technique. Lung markings are slightly increased which are also stable. No acute parenchymal change is appreciated on this chest x-ray. Bony structures are grossly intact. Impression: 1. Nothing acute is appreciated on portable chest x-ray. Diagnostic code #2
[2019-05-04] MEDS: Saccharomyces Boulardii (Probiotic) 250 MG Cap PO SCH ×2 (09:13→20:11)
[2019-05-04] MEDS: Metoprolol Tartrate 50 MG Tab PO SCH ×2 (09:13→22:11)
[2019-05-04] MEDS: Multivitamins,Therapeutic Tab PO SCH (09:13)
[2019-05-04] MEDS: Azithromycin 250 MG Tab PO SCH (12:04)
[2019-05-04] MEDS ORDERED: Furosemide 20 MG/2 ML VIAL IVPUSH ONE (19:46)
[2019-05-04] MEDS: Temazepam 7.5 MG Cap PO PRN (22:13)
[2019-05-04] MEDS: guaiFENesin/Dextromethorphan 100-10 MG/5 ML Soln 5 ML Cup PO PRN (22:14)
[2019-05-05] MEDS: Albuterol/Ipratropium 3.0-0.5 MG/3 ML Neb Soln NEB PRN ×2 (00:38→06:27)
[2019-05-05] MEDS: methylPREDNISolone Sodium Succinate 40 MG/1 ML SDV IVPUSH SCH (04:56)
[2019-05-05] MEDS: Levothyroxine 112 MCG Tab PO SCH (04:59)
[2019-05-05] MEDS ORDERED: Furosemide 20 MG/2 ML VIAL IVPUSH ONE (07:10)
[2019-05-05] MEDS: Saccharomyces Boulardii (Probiotic) 250 MG Cap PO SCH (08:22)
[2019-05-05] MEDS: Metoprolol Tartrate 50 MG Tab PO SCH (08:23)
[2019-05-05] MEDS: Multivitamins,Therapeutic Tab PO SCH (08:24)
--- NOTE | 2019-05-05 10:45 | PCM.DCSUM1 ---
<Charla Bell - Last Filed: 05/05/19 10:56> Discharge Summary - Hospital Course HPI Initial Comments: Patient is a 53 year old female with a 31 year pack history of cigarette smoking and history of hypertension and childhood asthma who presented to the ED for evaluation of pleuritic chest pain with productive cough and fever. The patient had a history of treatment for UTI a few days prior and since then developed a productive cough with associated chest pain, shortness of breath, wheezing and nausea. In the ER, CTA demonstrated possible cholelithiasis with mildly distended gallbladder, as well as 4 7 mm pulmonary nodules. Chest Xray showed no obvious infiltrates. EKG done in the ER demonstrated sinus tachycardia. The patient was admitted for reactive airway disease with probable COPD. The patient was started on IV antibiotics and provided albuterol/ Iprsatropium prn and phenylephrine/guaifenesin for cough suppression and decongestion. The remainder of the course was unremarkable. she was discharged n on 05/05/19 with instructions to follow up with her primary care provider regarding her pulmonary nodules, follow a heart healthy and weight loss diet, and undergo pulmonary function testing in 2-3 weeks. She may use a rescue bronchodilator as needed and she was encourage to stop smoking. Diagnosis: Stroke: No - Discharge Data Discharge Date: 05/05/19 Discharge Disposition: Home, Self-Care 01 Condition: Good - Referral to Home Health Primary Care Physician: Puja Novak AGILE DEVELOPER - Discharge Diagnosis/Problem(s) (1) Reactive airway disease SNOMED Code(s): 889369392867 ICD Code: J45.909 - UNSPECIFIED ASTHMA, UNCOMPLICATED Status: Acute - Patient Summary/Data Consults: Consultations 05/02/19 09:30 Consult to Export Administrator [CONS] Routine OT Evaluation and Treatment [CONS] Routine PT Evaluation and Treatment [CONS] Routine Respiratory Care Assess and Treatment [CONS] Routine - Patient Instructions Diet: Heart Healthy Diet, Weight Loss Diet Activity: As Tolerated Driving: May Drive Today Showering/Bathing: May Shower - Discharge Plan *PRESCRIPTION DRUG MONITORING PROGRAM REVIEWED*: No *COPY OF PRESCRIPTION DRUG MONITORING REPORT IN PATIENT THU: No Prescriptions/Med Rec: Albuterol Sulfate [Albuterol Sulfate Hfa] 8.5 gm IH Q4H PRN #1 hfa.aer.ad PRN Reason: RAD/Wheezing Azithromycin [Zithromax] 250 mg PO DAILY #3 tab Nicotine [Nicotine Patch] 21 mg TD DAILY #30 patch Saccharomyces Boulardii [Florastor] 250 mg PO DAILY #3 capsule Home Medications: Home Meds Levothyroxine Sodium [Synthroid] 112 mcg PO DAILY 12/20/16 [History] Metoprolol Tartrate 75 mg PO BID 12/20/16 [History] Multivitamin [Multi-Day Vitamins] 1 each PO DAILY 06/07/18 [History] hydroCHLOROthiazide [Hydrochlorothiazide] 12.5 - 25 mg PO DAILY 05/02/19 [ History] Albuterol Sulfate [Albuterol Sulfate Hfa] 8.5 gm IH Q4H PRN #1 hfa.aer.ad [Rx] Azithromycin [Zithromax] 250 mg PO DAILY #3 tab 05/05/19 [Rx] Nicotine [Nicotine Patch] 21 mg TD DAILY #30 patch 05/05/19 [Rx] Saccharomyces Boulardii [Florastor] 250 mg PO DAILY #3 capsule 05/05/19 [Rx] Oxygen Therapy Mode: Room Air Patient Handouts: Cholelithiasis, [id number], Bronchospasm, Adult, Easy-to- Read, Pulmonary Function Tests, Pulmonary Nodule, [id number], Steps to Quit Smoking, Obesity, Adult, [id number], Preventing Unhealthy Weight Gain, Adult Referrals: Puja Novak NP [Primary Care Provider] - 05/10/19 9:45 am (please attend the scheduled follow up appointment with your primary care provider.) - Discharge Summary/Plan Comment DC Time >30 min.: No Discharge Summary/Plan Comment: Assessment: * Reactive airway disease/probable COPD, recommend Pulmonary function tests approximately 2-3 weeks after discharge. Patient to use bronchodilator as needed for symptoms. * Nicotine Dependence: patient counseled on smoking cessation and provided with a Nicotine patch * Cholelithiasis: follow up with primary care provider, advise low fat diet and weight loss * Pulmonary nodules: monitor and follow up with primary care provider in 6 months * Obesity Class II Plan: * Continue azithromycin 3 day course in addition to probiotic * See above * Return to ER or seek nearest care if symptoms return or worsen - General Info Date of Service: 05/05/19 Admission Dx/Problem (Free Text: Admission Diagnosis/Problem Admission Diagnosis/Problem Hypoxia Subjective Update: Patient is overall improved but continues to have intermittent wheezing that is improved with use of albuterol and ipratropium. She denies constipation or difficulty urinating. She does feel that she has had some increased fluid retention, but it is improved from last night. She has been ambulating outside of her room and is Afebrile w/o leukocytosis today. Functional Status: Reports: Ambulating, Urinating. Denies: New Symptoms - Review of Systems General: Reports: No Symptoms HEENT: Reports: No Symptoms Pulmonary: Reports: Shortness of Breath, Cough, Wheezing Cardiovascular: Reports: Edema (Improved from last night ) Gastrointestinal: Reports: No Symptoms Genitourinary: Reports: No Symptoms Musculoskeletal: Reports: No Symptoms Skin: Reports: No Symptoms Neurological: Reports: No Symptoms Psychiatric: Reports: No Symptoms - Patient Data Vitals - Most Recent: Last Vital Signs Temp 97.3 F 05/05/19 08:15 Pulse 95 05/05/19 08:23 Resp 20 05/05/19 08:15 BP 125/66 05/05/19 08:23 Pulse Ox 95 05/05/19 08:15 Weight - Most Recent: 96.479 kg I&O - Last 24 hours: Intake & Output 05/04/19 05/05/19 05/05/19 22:59 06:59 14:59 Intake Total 2400 1600 Output Total 1400 4500 Balance 1000 -2900 Lab Results - Last 24 hrs: Laboratory Results - last 24 hr 05/05/19 05/05/19 Range/Units 05:00 05:00 WBC 9.65 (3.98-10.04) K/mm3 RBC 4.42 (3.98-5.22) M/mm3 Hgb 12.7 (11.2-15.7) gm/dl Hct 38.8 (34.1-44.9) % MCV 87.8 (79.4-94.8) fl MCH 28.7 (25.6-32.2) pg MCHC 32.7 (32.2-35.5) g/dl RDW Std Deviation 46.3 (36.4-46.3) fL Plt Count 156 L (182-369) K/mm3 MPV 11.3 (9.4-12.3) fl Neut % (Auto) 72.5 H (34.0-71.1) % Lymph % (Auto) 20.6 (19.3-51.7) % [place] % (Auto) 6.2 (4.7-12.5) % Eos % (Auto) 0 L (0.7-5.8) Baso % (Auto) 0.1 (0.1-1.2) % Neut # (Auto) 6.99 H (1.56-6.13) K/mm3 Lymph # (Auto) 1.99 (1.18-3.74) K/mm3 [place] # (Auto) 0.60 H (0.24-0.36) K/mm3 Eos # (Auto) 0.00 L (0.04-0.36) K/mm3 Baso # (Auto) 0.01 (0.01-0.08) K/mm3 Sodium 143 (136-145) mEq/L Potassium 3.8 (3.5-5.1) mEq/L Chloride 107 (98-107) mEq/L Carbon Dioxide 27 (21-32) mEq/L Anion Gap 12.8 (5-15) BUN 22 H (7-18) mg/dL Creatinine 0.9 (0.55-1.02) mg/dL Est Cr Clr Drug Dosing 59.11 mL/min Estimated GFR (MDRD) > 60 (>60) mL/min BUN/Creatinine Ratio 24.4 H (14-18) Glucose 112 H (74-106) mg/dL Calcium 8.9 (8.5-10.1) mg/dL Magnesium 2.4 (1.8-2.4) mg/dl C-Reactive Protein 0.7 (<1.0) mg/dL LUIS Results - Last 24 hrs: Microbiology 05/02/19 04:05 Aerobic Blood Culture - Preliminary Blood - Venous - Lab Draw NO GROWTH AFTER 3 DAYS Anaerobic Blood Culture - Preliminary NO GROWTH AFTER 3 DAYS 05/02/19 03:55 Aerobic Blood Culture - Preliminary Blood - Venous NO GROWTH AFTER 3 DAYS Anaerobic Blood Culture - Preliminary NO GROWTH AFTER 3 DAYS Med Orders - Current: Current Medications Acetaminophen (Tylenol) 650 mg PO Q4H PRN PRN Reason: Pain (Mild 1-3)/fever Last Admin: 05/04/19 04:53 Dose: 650 mg Hydrocodone Bitart/Acetaminophen ([place] 325-5 Mg) 1 tab PO Q4H PRN PRN Reason: Pain (moderate 4-6) Albuterol/Ipratropium (Duoneb 3.0-0.5 Mg/3 Ml) 3 ml NEB Q4H PRN PRN Reason: Shortness Of Breath/wheezing Last Admin: 05/05/19 06:27 Dose: 3 ml Azithromycin (Zithromax) 500 mg PO Q24H [facility] Last Admin: 05/04/19 12:04 Dose: 500 mg Bisacodyl (Dulcolax) 5 mg PO DAILY PRN PRN Reason: Constipation Docusate Sodium (Colace) 100 mg PO BID PRN PRN Reason: Constipation Guaifenesin/Phenylephrine HCl (Robitussin Dm) 10 ml PO Q4H PRN PRN Reason: Cough Last Admin: 05/04/19 22:14 Dose: 10 ml Hydromorphone HCl (Dilaudid) 0.25 mg IVPUSH Q2H PRN PRN Reason: Pain (severe 7-10) Promethazine HCl 12.5 mg/ (Sodium Chloride) 50.5 mls @ 100 mls/hr IV Q6H PRN PRN Reason: Nausea/Vomiting Levothyroxine Sodium (Levothyroxine) 112 mcg PO ACBREAKFAST [facility] Last Admin: 05/05/19 04:59 Dose: 112 mcg Methylprednisolone Sodium Succinate (Solu-Medrol) 60 mg IVPUSH Q12H [facility] Last Admin: 05/05/19 04:56 Dose: 60 mg Metoprolol Tartrate (Lopressor) 75 mg PO BID [facility] Last Admin: 05/05/19 08:23 Dose: 75 mg Multivitamins (Thera) 1 each PO DAILY [facility] Last Admin: 05/05/19 08:24 Dose: 1 each Ondansetron HCl (Zofran) 4 mg IV Q6H PRN PRN Reason: Nausea/Vomiting Last Admin: 05/03/19 12:27 Dose: 4 mg Saccharomyces Boulardii (Florastor) 250 mg PO BID [facility] Last Admin: 05/05/19 08:22 Dose: 250 mg Senna/Docusate Sodium (Senna Plus) 1 tab PO BID PRN PRN Reason: Constipation Temazepam (Restoril) 7.5 mg PO BEDTIME PRN PRN Reason: Sleep Last Admin: 05/04/19 22:13 Dose: 7.5 mg Discontinued Medications Acetaminophen (Tylenol) 650 mg PO NOW ONE Stop: 05/02/19 05:24 Last Admin: 05/02/19 05:27 Dose: 650 mg Albuterol/Ipratropium (Duoneb 3.0-0.5 Mg/3 Ml) 3 ml NEB ONETIME ONE Stop: 05/02/19 03:39 Last Admin: 05/02/19 03:44 Dose: 3 ml Albuterol/Ipratropium (Duoneb 3.0-0.5 Mg/3 Ml) 3 ml NEB ONETIME ONE Stop: 05/02/19 05:00 Last Admin: 05/02/19 05:07 Dose: 3 ml Albuterol/Ipratropium (Duoneb 3.0-0.5 Mg/3 Ml) 3 ml NEB ONETIME ONE Stop: 05/02/19 06:13 Last Admin: 05/02/19 06:18 Dose: 3 ml Furosemide (Lasix) 20 mg IVPUSH NOW ONE Stop: 05/04/19 19:47 Last Admin: 05/04/19 20:07 Dose: 20 mg Furosemide (Lasix) 20 mg IVPUSH ONETIME ONE Stop: 05/05/19 07:11 Last Admin: 05/05/19 08:18 Dose: 20 mg Sodium Chloride (Normal Saline) 1,000 mls @ 125 mls/hr IV ASDIRECTED [facility] Last Admin: 05/03/19 04:56 Dose: 125 mls/hr Sodium Chloride (Normal Saline) 100 mls @ 5 mls/sec IV ASDIRECTED [facility] Last Admin: 05/02/19 04:43 Dose: 5 mls/sec Levofloxacin/Dextrose 750 mg/ (Premix) 150 mls @ 100 mls/hr IV ONETIME ONE Stop: 05/02/19 08:33 Last Admin: 05/02/19 07:24 Dose: 100 mls/hr Azithromycin 500 mg/ Sodium (Chloride) 250 mls @ 250 mls/hr IV Q24H [facility] Last Admin: 05/03/19 11:57 Dose: 250 mls/hr Magnesium Sulfate/Dextrose 1 (gm/ Premix) 100 mls @ 100 mls/hr IV ONETIME ONE Stop: 05/03/19 13:59 Last Admin: 05/03/19 12:00 Dose: 100 mls/hr Iopamidol (Isovue-370 (76%)) 100 ml IVPUSH ONETIME ONE Stop: 05/02/19 04:43 Last Admin: 05/02/19 04:43 Dose: 100 ml Methylprednisolone Sodium Succinate (Solu-Medrol) 125 mg IVPUSH ONETIME ONE Stop: 05/02/19 04:26 Last Admin: 05/02/19 04:47 Dose: 125 mg Methylprednisolone Sodium Succinate (Solu-Medrol) 80 mg IVPUSH Q8H [facility] Last Admin: 05/04/19 04:50 Dose: 80 mg - Exam General: Reports: Alert, Oriented HEENT: Reports: Pupils Equal, EOMI, Mucous Membr. Moist/[place] Neck: Reports: Supple Lungs: Reports: Normal Respiratory Effort, Wheezing Cardiovascular: Reports: Regular Rate, Regular Rhythm GI/Abdominal Exam: Normal Bowel Sounds, Soft, Non-Tender (Female) Exam: Deferred Rectal (Female) Exam: Deferred Back Exam: Reports: Normal Inspection Extremities: Normal Inspection, Non-Tender, Normal Capillary Refill, Pedal Edema (1+) Skin: Reports: Warm, Dry, Intact Neurological: Reports: No New Focal Deficit Psy/Mental Status: Reports: Alert, Normal Affect, Normal Mood <Sunita Parkinson T - Last Filed: 05/05/19 21:04> Discharge Summary - Referral to Home Health Primary Care Physician: Puja Novak NP - Patient Summary/Data Operative Procedure(s) Performed: None Complications: None Consults: Consultations 05/02/19 09:30 Consult to Export Administrator [CONS] Routine OT Evaluation and Treatment [CONS] Routine PT Evaluation and Treatment [CONS] Routine Respiratory Care Assess and Treatment [CONS] Routine Labs Pending at D/C: None Recommended Follow-up Testing/Procedures: PFT after discharge Hospital Course: The patient as primarily admitted for RAD likely from her active smoking. However she immediately improved with administrations of IV steroid, bronchodilators as well as smooth muscle relaxants. Her imaging studies revealed no acute abnormal findings. However her CT scan showed gallstones and pulmonary nodules which can be followed by her PCP after discharge. Her hospital course was uncomplicated. Once medically stable, she was then discharged home with a rescue inhaler and nicotine patch for smoking cessation. She was advised to see her PCP in a week and to have PFT in 2-3 weeks. Patient was offered practical counseling on smoking cigarettes. She was counseled about the dangers of smoking and associated health risks. However she is already on Wellbutrin for smoking cessation according to her. The patient was seen and examined in concert with the medical student. The discharge assessment and plans were discussed and agreed upon with me. - Patient Data Vitals - Most Recent: Last Vital Signs Temp 36.4 C 05/05/19 11:13 Pulse 75 05/05/19 11:13 Resp 16 05/05/19 11:13 BP 134/89 05/05/19 12:45 Pulse Ox 93 L 05/05/19 11:13 I&O - Last 24 hours: Intake & Output 05/05/19 05/05/19 05/05/19 06:59 14:59 22:59 Intake Total 1600 1230 Output Total 4500 900 Balance -2900 330 Lab Results - Last 24 hrs: Laboratory Results - last 24 hr 05/05/19 05/05/19 Range/Units 05:00 05:00 WBC 9.65 (3.98-10.04) K/mm3 RBC 4.42 (3.98-5.22) M/mm3 Hgb 12.7 (11.2-15.7) gm/dl Hct 38.8 (34.1-44.9) % MCV 87.8 (79.4-94.8) fl MCH 28.7 (25.6-32.2) pg MCHC 32.7 (32.2-35.5) g/dl RDW Std Deviation 46.3 (36.4-46.3) fL Plt Count 156 L (182-369) K/mm3 MPV 11.3 (9.4-12.3) fl Neut % (Auto) 72.5 H (34.0-71.1) % Lymph % (Auto) 20.6 (19.3-51.7) % [place] % (Auto) 6.2 (4.7-12.5) % Eos % (Auto) 0 L (0.7-5.8) Baso % (Auto) 0.1 (0.1-1.2) % Neut # (Auto) 6.99 H (1.56-6.13) K/mm3 Lymph # (Auto) 1.99 (1.18-3.74) K/mm3 [place] # (Auto) 0.60 H (0.24-0.36) K/mm3 Eos # (Auto) 0.00 L (0.04-0.36) K/mm3 Baso # (Auto) 0.01 (0.01-0.08) K/mm3 Sodium 143 (136-145) mEq/L Potassium 3.8 (3.5-5.1) mEq/L Chloride 107 (98-107) mEq/L Carbon Dioxide 27 (21-32) mEq/L Anion Gap 12.8 (5-15) BUN 22 H (7-18) mg/dL Creatinine 0.9 (0.55-1.02) mg/dL Est Cr Clr Drug Dosing 59.11 mL/min Estimated GFR (MDRD) > 60 (>60) mL/min BUN/Creatinine Ratio 24.4 H (14-18) Glucose 112 H (74-106) mg/dL Calcium 8.9 (8.5-10.1) mg/dL Magnesium 2.4 (1.8-2.4) mg/dl C-Reactive Protein 0.7 (<1.0) mg/dL LUIS Results - Last 24 hrs: Microbiology 05/02/19 20:00 Gram Stain - Final Sputum - Expectorated Sputum Culture - Final NORMAL RESPIRATORY PETEY 2 DAYS 05/02/19 04:05 Aerobic Blood Culture - Preliminary Blood - Venous - Lab Draw NO GROWTH AFTER 3 DAYS Anaerobic Blood Culture - Preliminary NO GROWTH AFTER 3 DAYS 05/02/19 03:55 Aerobic Blood Culture - Preliminary Blood - Venous NO GROWTH AFTER 3 DAYS Anaerobic Blood Culture - Preliminary NO GROWTH AFTER 3 DAYS Med Orders - Current: Current Medications Discontinued Medications Acetaminophen (Tylenol) 650 mg PO NOW ONE Stop: 05/02/19 05:24 Last Admin: 05/02/19 05:27 Dose: 650 mg Acetaminophen (Tylenol) 650 mg PO Q4H PRN PRN Reason: Pain (Mild 1-3)/fever Last Admin: 05/04/19 04:53 Dose: 650 mg Hydrocodone Bitart/Acetaminophen ([place] 325-5 Mg) 1 tab PO Q4H PRN PRN Reason: Pain (moderate 4-6) Albuterol/Ipratropium (Duoneb 3.0-0.5 Mg/3 Ml) 3 ml NEB ONETIME ONE Stop: 05/02/19 03:39 Last Admin: 05/02/19 03:44 Dose: 3 ml Albuterol/Ipratropium (Duoneb 3.0-0.5 Mg/3 Ml) 3 ml NEB ONETIME ONE Stop: 05/02/19 05:00 Last Admin: 05/02/19 05:07 Dose: 3 ml Albuterol/Ipratropium (Duoneb 3.0-0.5 Mg/3 Ml) 3 ml NEB ONETIME ONE Stop: 05/02/19 06:13 Last Admin: 05/02/19 06:18 Dose: 3 ml Albuterol/Ipratropium (Duoneb 3.0-0.5 Mg/3 Ml) 3 ml NEB Q4H PRN PRN Reason: Shortness Of Breath/wheezing Last Admin: 05/05/19 06:27 Dose: 3 ml Azithromycin (Zithromax) 500 mg PO Q24H [facility] Last Admin: 05/05/19 11:10 Dose: 500 mg Bisacodyl (Dulcolax) 5 mg PO DAILY PRN PRN Reason: Constipation Docusate Sodium (Colace) 100 mg PO BID PRN PRN Reason: Constipation Furosemide (Lasix) 20 mg IVPUSH NOW ONE Stop: 05/04/19 19:47 Last Admin: 05/04/19 20:07 Dose: 20 mg Furosemide (Lasix) 20 mg IVPUSH ONETIME ONE Stop: 05/05/19 07:11 Last Admin: 05/05/19 08:18 Dose: 20 mg Guaifenesin/Phenylephrine HCl (Robitussin Dm) 10 ml PO Q4H PRN PRN Reason: Cough Last Admin: 05/04/19 22:14 Dose: 10 ml Hydromorphone HCl (Dilaudid) 0.25 mg IVPUSH Q2H PRN PRN Reason: Pain (severe 7-10) Sodium Chloride (Normal Saline) 1,000 mls @ 125 mls/hr IV ASDIRECTED [facility] Last Admin: 05/03/19 04:56 Dose: 125 mls/hr Sodium Chloride (Normal Saline) 100 mls @ 5 mls/sec IV ASDIRECTED [facility] Last Admin: 05/02/19 04:43 Dose: 5 mls/sec Levofloxacin/Dextrose 750 mg/ (Premix) 150 mls @ 100 mls/hr IV ONETIME ONE Stop: 05/02/19 08:33 Last Admin: 05/02/19 07:24 Dose: 100 mls/hr Promethazine HCl 12.5 mg/ (Sodium Chloride) 50.5 mls @ 100 mls/hr IV Q6H PRN PRN Reason: Nausea/Vomiting Azithromycin 500 mg/ Sodium (Chloride) 250 mls @ 250 mls/hr IV Q24H [facility] Last Admin: 05/03/19 11:57 Dose: 250 mls/hr Magnesium Sulfate/Dextrose 1 (gm/ Premix) 100 mls @ 100 mls/hr IV ONETIME ONE Stop: 05/03/19 13:59 Last Admin: 05/03/19 12:00 Dose: 100 mls/hr Iopamidol (Isovue-370 (76%)) 100 ml IVPUSH ONETIME ONE Stop: 05/02/19 04:43 Last Admin: 05/02/19 04:43 Dose: 100 ml Levothyroxine Sodium (Levothyroxine) 112 mcg PO ACBREAKFAST [facility] Last Admin: 05/05/19 04:59 Dose: 112 mcg Methylprednisolone Sodium Succinate (Solu-Medrol) 125 mg IVPUSH ONETIME ONE Stop: 05/02/19 04:26 Last Admin: 05/02/19 04:47 Dose: 125 mg Methylprednisolone Sodium Succinate (Solu-Medrol) 80 mg IVPUSH Q8H [facility] Last Admin: 05/04/19 04:50 Dose: 80 mg Methylprednisolone Sodium Succinate (Solu-Medrol) 60 mg IVPUSH Q12H [facility] Last Admin: 05/05/19 04:56 Dose: 60 mg Metoprolol Tartrate (Lopressor) 75 mg PO BID [facility] Last Admin: 05/05/19 08:23 Dose: 75 mg Multivitamins (Thera) 1 each PO DAILY [facility] Last Admin: 05/05/19 08:24 Dose: 1 each Ondansetron HCl (Zofran) 4 mg IV Q6H PRN PRN Reason: Nausea/Vomiting Last Admin: 05/03/19 12:27 Dose: 4 mg Saccharomyces Boulardii (Florastor) 250 mg PO BID [facility] Last Admin: 05/05/19 08:22 Dose: 250 mg Senna/Docusate Sodium (Senna Plus) 1 tab PO BID PRN PRN Reason: Constipation Temazepam (Restoril) 7.5 mg PO BEDTIME PRN PRN Reason: Sleep Last Admin: 05/04/19 22:13 Dose: 7.5 mg
[2019-05-05] MEDS: Azithromycin 250 MG Tab PO SCH (11:10)
[2019-05-05 14:38] VITALS: PULSE 75
[2019-05-05 14:39] VITALS: BP 134/89
== END 2019-05-05 13:02 | disposition home or self-care (01) | DRG 192 ==
LOC: JD.ED 03:19 → JD.MS 07:27
PROVIDERS: ADMIT Internal Medicine; ATTEND Internal Medicine
DX: J44.9 Chronic obstructive pulmonary disease, unspecified (principal); K80.20 Calculus of gallbladder without cholecystitis without obstruction; F41.0 Panic disorder [episodic paroxysmal anxiety]; E03.9 Hypothyroidism, unspecified; E66.9 Obesity, unspecified; R00.0 Tachycardia, unspecified; I10 Essential (primary) hypertension; F17.210 Nicotine dependence, cigarettes, uncomplicated; R91.8 Other nonspecific abnormal finding of lung field; Z79.890 Hormone replacement therapy; Z79.899 Other long term (current) drug therapy; Z87.442 Personal history of urinary calculi; Z68.30 Body mass index [BMI] 30.0-30.9, adult; Z71.6 Tobacco abuse counseling; Z88.2 Allergy status to sulfonamides
CPT/HCPCS: 36415; 71045; 71045-26; 71275; 71275-26; 80048; 80053; 81001; 83735; 84484; 85007; 85025; 85027; 85610; 85730; 86140; 86738; 87040; 87070; 87205; 93005; 93010; 94640; 94667; 94668; 94760; 94761; 96361; 96374; 96375; 97161-GP; 97165-GO; 99284; 99285-25; A9270-GY; J0456; J1956; J2405; J2920; J2930; J3475; J7030; J7040; J7050; J7620-GY; Q9967